=== PATIENT | male | born 1990 | race African-American/Black ===

== ENCOUNTER 2024-09-22 15:10 | Inpatient (IN) | payer OTHER, SELFPAY ==
[2024-09-22] VITALS (9 sets, daily range): BP systolic 141–163; BP diastolic 79–102; PULSE 104–123; RESP 17–20; TEMP 36.4–36.9; O2SAT 97–100; BMI 36.1
--- NOTE | ~2024-09-22 | XR_ITS ---
EXAMINATION: XR chest 1V portable DATE: 09/22/2024 17:12 INDICATION: Diabetic ketoacidosis. TECHNIQUE: A single frontal view of the chest was obtained. COMPARISON: None. FINDINGS: There is no pneumonia, pleural effusion, or pneumothorax. The heart size is normal. IMPRESSION: 1. No acute cardiopulmonary disease. Reviewed, dictated and finalized at location A. R EQUIPMENT SERGEANT
--- NOTE | ~2024-09-22 | CT_ITS ---
EXAMINATION: CT brain wo con DATE: 09/22/2024 15:57 INDICATION: Blurry vision. TECHNIQUE: Computed tomography (CT) of the head was performed without intravenous contrast. The mA wa s adjusted according to patient size. Iterative reconstruction technique was employed. The dose-lengt h product was 681.00 mGy-cm. COMPARISON: None FINDINGS: There is no intracranial hemorrhage, acute infarction, or abnormal intracranial mass lesion . The ventricles are normal in size. The orbits are normal. There is mild mucosal thickening in the p aranasal sinuses. The mastoid air cells are normal. IMPRESSION: 1. Normal brain. Reviewed, dictated and finalized at location A. MACHINE OPERATOR IMPRESSION: 1. Normal brain.
[2024-09-22 15:40] LABS: Glucose Point of Care 462 mg/dl (65-105)
[2024-09-22] MEDS: SODIUM CHLORIDE 0.9% IV 1,000 ML 999 ML IV CONT ×3 (16:02→16:45)
[2024-09-22 16:03] LABS: Basophils Absolute Auto 0.1 K/mm3 (0.0-0.1); Eosinophils Absolute Auto 0.2 K/mm3 (0-0.3); Eosinophils Percent Auto 1.5 % (0-4.4); Hematocrit 51.3 % (42.0-52.0); Immature Granulocyte Absolute 0.02 K/mm3 (0.00-0.031); Immature Granulocyte Percent A 0.2 % (0-0.5); Lymphocytes Absolute Auto 2.08 K/mm3 (0.9-3.2); Lymphocytes Percent Auto 19.8 % (18.3-44.2); Mean Corpuscular HGB Conc 33.1 g/dl (32-36); Mean Corpuscular Hemoglobin 27.8 pg (26-34); Mean Platelet Volume 12.8 fl (7.4-10.4); Monocytes Percent Auto 9.8 % (2.6-8.5); Neutrophils Absolute Auto 7.1 K/mm3 (1.3-6.7); Neutrophils Percent Auto 67.7 % (45.5-73.1); Platelet Count Result 261 k/mm3 (150-375); Red Blood Count 6.11 M/mm3 (4.6-6.20); Red Cell Distribution Width 12.4 % (11.5-14.5); White Blood Count 10.5 K/mm3 (4.5-10.0)
[2024-09-22 16:14] LABS: Alanine Aminotransferase 43 U/L (6-50); Alkaline Phosphatase 118 U/L (38-126); Anion Gap 23 mmol/L (4-12); Aspartate Amino Transferase 29 U/L (17-59); Bilirubin,Total 1.2 mg/dL (0.2-1.3); Blood Urea Nitrogen 24 mg/dL (9-20); Calcium 10.3 mg/dL (8.4-10.2); Carbon Dioxide 20 mmol/L (22-30); Chloride 90 mmol/L (98-107); Estimated CRCL calculation 108 ml/min; Estimated Glomerular Filt Rate > 60; Glucose 430 mg/dL (65-110); Magnesium 2.6 mg/dL (1.6-2.3); Phosphorus 5.1 mg/dL (2.5-4.5); Potassium 4.8 mmol/L (3.4-5.0); Sodium 133 mmol/L (137-145)
--- OUTSIDE RECORDS SUMMARY | 2024-09-22 16:16 | XMS_ITS | Clinical Summary ---
Author Organization [facility] Address [facility] [place] [address] Care Team Providers Care Certified Bench Jeweler Technician Name Role Phone None, Provider MD Primary Care Provider Unavaila ble Allergies No known active allergies Medications amLODIPine (NORVASC) 5 MG tablet Take 1 tablet (5 mg total) by mouth daily. 30 tablet 1 01/17/2023 Active naproxen (NAPROSYN) 500 MG tablet Take 1 tablet (500 mg total) by mouth 2 (two) times daily with meals. 30 tablet 03/01/2023 Active azithromycin (ZITHROMAX Z-ROBIN) 250 MG tablet Take 2 tabs on day one Take 1 tab on days 2-5 6 tablet 03/01/2023 Active Family History Medical History Relation Comments Hypertension Mother Relation Status Comments Mother Alive Social History Tobacco Use Types Packs/Day Years Used Date Smoking Tobacco: Every Day Cigars Smokeless Tobacco: Never Tobacco Cessation:Ready to Q uit: Not Asked; Counseling Given: Not Answered Alcohol Use Standard Drinks/Week Comments Yes 2 (1 standard drink = 0.6 oz pur e alcohol) Sex and Gender Information Value Date Recorded Sex Assigned at Not on file Legal Sex Male 2:08 PM CDT Gender Identity Not on file Sexual Orientation Not on file Last Filed Vital Signs Vital Sign Reading Time Taken Comments Blood Pressure 167/102 03/01/2023 3:40 PM CDT Pulse 95 03/01/2023 3:40 PM CDT Temperature 36.9 C (98.5 F) 03/01/2023 2:24 PM CDT Respiratory Rate 18 03/01/2023 3:40 PM CDT Oxygen Saturation 95% 03/01/2023 3:40 PM CDT Inhaled Oxygen Concentration - - Weight 117.9 kg (260 lb) 03/01/2023 2:24 PM CDT Height 177.8 cm (5' 10 ) 03/01/2023 2:24 PM CDT Body Mass Index 37.31 03/01/2023 2:24 PM CDT Plan of Treatment Health Maintenance Due Date Last Done Comments Annual Physical 1993 Pneumococcal Vaccine: Pediat rics (0 to 5 Years) and At-Risk Patients (6 to 64 Years) (1 of 2 - PCV) 1996 Hepatitis C 2008 DTaP, Tdap and Td Vaccines ( 1 - Tdap) 2009 Hepatitis B Vaccines (1 of 3 - 19+ 3-dose series) 2009 COVID-19 Vaccine (2023-2 5 season) 2024 Influenza Adult (#1) 2024 HPV Vaccines Aged Out No longer eligi ble based on patient's age to complete this topic Meningococcal B Vaccine Aged Out No l onger eligible based on patient's age to complete this topic Meningococcal Vaccine Aged Out No laci rodríguez eligible based on patient's age to complete this topic RSV Immunizations Under 20 Months Aged Out No longer eligible based on patient's age to complete this topic Insurance [facility] Care Teams Certified Bench Jeweler Technician Relationship Specialty Start Date End Date None, Provider, PCP - General 04/28/22
--- NOTE | 2024-09-22 16:18 | ED_ITS ---
HPI - Headache General Chief Complaint: Headache Stated Complaint: LUJAN,BLURRED VISION Time Seen by Provider: 09/22/24 15:37 History of Present Illness HPI Narrative: 33-year-old previously healthy male presenting to the emergency department for evaluation of progressive worsening blurry vision, frontal headache, polyuria and polydipsia. He has no history of diabetes, no strong family history of diabetes. Does not take any prescription medications. He states for last 3 days he has been at work having progressively worsening vision where he feels his mood far site is deteriorating but he sees clear close up. Does not wear contact lenses, does not have any corrective glasses. No vision changes before. States that he has been feeling very dehydrated despite good oral intake. Has been having polyuria with clear urine without any urinary tract infection symptoms. Denies any nausea, vomiting, difficulty breathing, abdominal pain, back pain. Blood sugar in triage was elevated 462 indicative of diabetes. Related Data Home Medications ?Medication ?Instructions ?Recorded ?Confirmed ?Last Taken ?Type No Home Medications 09/22/24 09/22/24 Unknown History Allergies Allergy/AdvReac Type Severity Reaction Status Date / Time No Known Allergies Allergy Verified 09/22/24 15:42 Review of Systems 2 Review of Systems: As reviewed above in HPI Exam 2 Narrative: GENERAL: [Well-appearing, well-nourished, and in no acute distress.] HEAD: [Normocephalic, atraumatic.] EYES: [PERRLA and EOMI.] ENT: Nares clear, no rhinorrhea or epistaxis. Mucous membranes dry. NECK: Supple. CHEST: [Clear to auscultation. No respiratory distress.] HEART: [Regular rate and rhythm]. No murmur heard. [Normal peripheral pulses.] ABDOMEN: [Soft, nondistended], [nontender], [No rigidity or guarding] EXTREMITIES: Normal range of motion. [No edema.] SKIN: Warm, dry, no rash. NEURO: [No focal deficits]. Alert and oriented [x3.] PSYCH: [Normal mood and affect.] Course Vital Signs Vital signs: Vital Signs Temperature 36.8 C 09/22/24 15:23 Pulse Rate 123 H 09/22/24 15:23 Respiratory Rate 18 09/22/24 15:23 Blood Pressure 159/92 H 09/22/24 15:23 Pulse Oximetry 97 09/22/24 15:23 Oxygen Delivery Room Air 09/22/24 15:23 Temperature 36.8 C 09/22/24 15:23 Pulse Rate 115 H 09/22/24 16:00 Respiratory Rate 20 09/22/24 16:00 Blood Pressure 152/93 H 09/22/24 16:00 Pulse Oximetry 99 09/22/24 16:00 Oxygen Delivery Room Air 09/22/24 15:37 MDM - Headache MDM Narrative Medical decision making narrative: 33-year-old previously healthy male presenting to the emergency department for evaluation of progressively worsening blurry vision, headache, polyuria and polydipsia. Patient appears very dehydrated on examination is tachycardic with a pulse 123. Slightly hypertensive with a blood pressure 152/93 but no tachypnea, fever or hypoxia. He has clear breath sounds, strong radial pulses, no abdominal pain. Patient was found to be hyperglycemic in triage with no reported history of diabetes. Suspicion presently is for hyperglycemia causing his symptomatology to with potential involvement of diabetic ketoacidosis versus HHS. Low suspicion for intracranial pathology but given his hyperglycemia he is high risk for stroke pathology. CT of the head was obtained as well as blood work including CBC, CMP, A1c, beta hydroxybutyrate in VBG. He was given a 2 L normal saline bolus and placed on pulse oximetry and alarm security or surveillance monitor. Workup revealed a white count of 10.5, normal platelets, normal hemoglobin. Blood gas shows normal pH is 7.36 however he does have anion gap of 24 with a bicarb of 19. Compensated with respiratory drive and concerning for metabolic acidosis secondary to DKA. Electrolytes show pseudo hyponatremia which corrects towards normal after accounting for his glucose of 430. A1c came back at 11.7. Anion gap of 24, bicarb of 19. BUN of 24 and creatinine 1.10. Likely prerenal azotemia from dehydration. Elevated beta hydroxybutyrate 4.06 indicative of ongoing ketosis from his diabetes. Urinalysis and viral panels pending. CT of the head was negative without any acute findings. Chest x-ray without any acute findings. Patient was given 3 L of normal saline, given potassium supplementing infusion of normal saline as maintenance rate of 200 cc/hour with pharmacy to assist. Started on IV insulin therapy at 0.1 units/kilogram per hour for treatment of diabetic ketoacidosis with his elevated anion gap, ketosis and elevated blood sugar. Spoke to the counter waitress/waiter Dr. Troncoso who accepted the patient to the intensive care unit after we went over patient's clinical exam, history and workup findings here. Spoke to the hospitalist team currently being covered by the midlevel provider Maria E who agreed to accept the patient to the hospital as well. Patient was made aware of the plan of care and was accepted to the ICU at this time. Medical Records Attestation: I reviewed the patient's medical records. Lab Data Attestation: I reviewed the patient's lab results. 09/22/24 15:58 09/22/24 15:58 Labs: Lab Results 09/22/24 09/22/24 09/22/24 Range/Units 15:31 15:58 17:23 WBC 10.5 H (4.5-10.0) K/mm3 RBC 6.11 (4.6-6.20) M/mm3 Hgb 17.0 (14.0-18.0) g/dL Hct 51.3 (42.0-52.0) % MCV 84.0 (80-100) fl MCH 27.8 (26-34) pg MCHC 33.1 (32-36) g/dl RDW 12.4 (11.5-14.5) % Plt Count 261 (150-375) k/mm3 MPV 12.8 H (7.4-10.4) fl Immature Gran % (Auto) 0.2 (0-0.5) % Neut % (Auto) 67.7 (45.5-73.1) % Lymph % (Auto) 19.8 (18.3-44.2) % [place] % (Auto) 9.8 H (2.6-8.5) % Eos % (Auto) 1.5 (0-4.4) % Baso % (Auto) 1.0 (0.2-1.2) % Lymph # (Auto) 2.08 (0.9-3.2) K/mm3 [place] # (Auto) 1.0 H (0.1-0.6) K/mm3 Eos # (Auto) 0.2 (0-0.3) K/mm3 Baso # (Auto) 0.1 (0.0-0.1) K/mm3 Abs Immat Gran (auto) 0.02 (0.00-0.031) K/mm3 Absolute Neuts (auto) 7.1 H (1.3-6.7) K/mm3 Absolute Nucleated RBC 0.000 (0.0-0.012) K/mm3 Nucleated RBC % 0.0 (0.0-0.2) % Sodium 133 L (137-145) mmol/L Potassium 4.8 (3.4-5.0) mmol/L Chloride 90 L (98-107) mmol/L Carbon Dioxide 20 L (22-30) mmol/L Anion Gap 23 H (4-12) mmol/L BUN 24 H (9-20) mg/dL Creatinine 1.10 (0.7-1.3) mg/dL Estim Creat Clear Calc 108 ml/min Estimated GFR > 60 (59 - ) Glucose 430 H (65-110) mg/dL POC Capillary Glucose 462 H (65-105) mg/dl Hemoglobin A1c 11.7 H (<5.7) % Calcium 10.3 H (8.4-10.2) mg/dL Phosphorus 5.1 H (2.5-4.5) mg/dL Magnesium 2.6 H (1.6-2.3) mg/dL Total Bilirubin 1.2 (0.2-1.3) mg/dL AST 29 (17-59) U/L ALT 43 (6-50) U/L Alkaline Phosphatase 118 (38-126) U/L Total Protein 10.0 H (6.3-8.2) g/dL Albumin 5.0 (3.5-5.1) g/dL Beta-Hydroxybutyrate/Acetoacetate 4.06 H (0.02-0.27) mmol/L Urine Color Pending Urine Appearance Pending Urine pH Pending Ur Specific [employer] Pending Urine Protein Pending Urine Glucose (UA) Pending Urine Ketones Pending Ur Blood (Man) Pending Urine Nitrate Pending Urine Bilirubin Pending Urine Urobilinogen Pending Leukocyte Esterase Rfl Pending Influenza A (RT-PCR) Pending Influenza B (RT-PCR) Pending RSV (RT-PCR) Pending SARS-CoV-2 RNA (RT-PCR) Pending ABG Data ABG results: 09/22/24 16:35 VBG pH 7.359 VBG pCO2 35.7 L VBG pO2 33.6 L VBG HCO3 19.7 L O2 Delivery Device Not Reportable O2 Liters/Min Not Reportable FiO2 21 Attestation: I personally reviewed and interpreted this ABG as follows: Interpretation: Normal pH with a compensated metabolic acidosis with respiratory alkalosis. Imaging Data Attestation: I personally reviewed and interpreted this imaging study as follows: My impression: Impressions Head CT 09/22/24 16:03 IMPRESSION: 1. Normal brain. Chest X-Ray 09/22/24 17:17 IMPRESSION: 1. No acute cardiopulmonary disease. Critical Care Time Critical Care Time Critical Care Time: Yes Total Critical Care Time: 77 Discharge Plan Discharge Clinical Impression: DKA (diabetic ketoacidosis), Diabetes mellitus, new onset, Blurred vision, Acute dehydration, Polyuria Patient Disposition: Still a Patient Condition: Guarded Prognosis Patient Language: Welsh Prescriptions: No Action No Home Medications Follow-up/Referrals: PHYSICIAN,RN TELE [Primary Care Provider] - Time of Disposition: 17:39
[2024-09-22 16:20] LABS: Beta-Hydroxybutyrate/Acetoacetate 4.06 mmol/L (0.02-0.27)
[2024-09-22 16:42] LABS: Fractional Inspired Oxygen 21 %; HCO3 VBG 19.7 mEq/l (24.0-30.0); PCO2 VBG 35.7 mmHg (42.0-48.0); PO2 VBG 33.6 mmHg (35.0-45.0); pH VBG 7.359 (7.300-7.400)
[2024-09-22 16:43] LABS: Hemoglobin A1C 11.7 % (<5.7)
[2024-09-22] MEDS: SODIUM CHLORIDE 0.9% IV CONT (17:50)
[2024-09-22] MEDS: POTASSIUM CHLORIDE IV CONT (17:50)
[2024-09-22] MEDS: INSULIN HUMAN REGULAR (*BKC) 100 UNITS in SODIUM CHLORIDE 0.9% IV 99 ML 11.5 UNITS IV CONT (17:54)
[2024-09-22 18:00] LABS: Add Urine Microscopic? YES; Appearance Urine Clear (Clear); Bacteria Urine None Seen /hpf; Bilirubin Urine Negative (Negative); Blood Urine Negative (Negative); Color Urine Yellow (Yellow); Glucose Urine UA 3+ mg/dL (Negative); Ketones Urine 3+ mg/dL (Negative); Leukocyte Esterase Ur Negative LEU/UL (Negative); Need Manual Microscopic Reviewed; Nitrate Urine Negative (Negative); Protein Urine 1+ mg/dL (Negative); RBC Urine 0-2 /hpf (0-2); Specific Grav Ur 1.027 (1.001-1.035); Squamous Epithelial Cell Urine Occasional /hpf (Few); Urobilinogen Urine 0.2 mg/dL (<2.0); WBC Urine 0-5 /hpf (0-3); pH Urine 5.5 (5.0-9.0)
--- NOTE | 2024-09-22 18:00 | P.HP_ITS ---
H&P: HPI History of Present Illness Date/Time: 09/22/24 18:00 Chief Complaint: Headache and blurry vision. Narrative: This is a very pleasant 33-year-old male with no reported medical history who presented to the emergency department via private vehicle with complaints of headache and blurry vision. The patient provides the following history. He has not been feeling well for about 3 days with symptoms to include a frontal headache, blurry vision, polydipsia, polyuria, and decreased energy. He feels dehydrated despite good oral intake. He denies syncope, near syncope, fever, cold and flu symptoms, chest pain, palpitations, cough, shortness of breath, abdominal pain, nausea, vomiting, diarrhea, dysuria, paresthesias, and nonhealing wounds. His weight has remained stable. No known personal or family history of diabetes. In the ED: Vitals on arrival include a temperature of 98.2? F, blood pressure 159/92, pulse 123, respiratory rate 18, SpO2 97% on room air. Labs were significant for WBC count of 10.5, sodium 133, chloride 90, carbon dioxide 20, anion gap 23, BUN 24, creatinine 1.10, glucose 430, calcium 10.3, beta hydroxybutyrate 0.06. VBG showed a pH of 7.359, pCO2 35.7, HC03 19.7. He received 3 L sodium chloride and has been started on insulin drip and is being admitted in this setting for further treatment of diabetic ketoacidosis and new onset diabetes. Review of Systems Review of Systems: 12 systems were reviewed and are negativ e except for as per HPI. [facility] Past Medical History Medical History (Updated 09/22/24 @ 21:21 by Maria E Rand PA-C) No significant medical problems Surgical History Surgical History (Updated 09/22/24 @ 21:21 by Maria E Rand PA-C) No significant past surgical history Social History Social History (Updated 09/22/24 @ 21:21 by Maria E Rand PA-C) Social History: Surrogate medical decision maker: Griselda Og significant other. Code status: Full code. Smoking status: Current every day smoker Tobacco type: cigars Alcohol intake: current Substance use: never Substance use type: does not use Do You Feel Safe in your Home?: Yes Lack of Transportation: No Lack of Food: Never True Current Housing: I Have Housing Concerned About Future Housing: No Difficulty Paying Gas/Electric Bills: No Difficulty Paying for Meds: No Currently Unemployed: No Education: Grade School Difficulty w/ Childcare or Family Care: No Spiritual care concerns: No Meds Home Medications and Allergies Home Medications ?Medication ?Instructions ?Recorded ?Confirmed ?Type No Home Medications 09/22/24 09/22/24 History Allergies Allergy/AdvReac Type Severity Reaction Status Date / Time No Known Allergies Allergy Verified 09/22/24 15:42 Vital Signs Vital Signs - 24 hr 09/22/24 15:23 09/22/24 15:37 09/22/24 16:00 Temperature 98.2 F Pulse Rate 123 H 122 H 115 H Respiratory Rate 18 17 20 Blood Pressure 159/92 H 152/102 H 152/93 H Pulse Oximetry 97 99 99 Oxygen Delivery Room Air Room Air 09/22/24 17:58 Temperature Pulse Rate 108 H Respiratory Rate 17 Blood Pressure 158/98 H Pulse Oximetry 100 Oxygen Delivery Exam Narrative: General: Moderately ill-appearing male in the semi-Rodriguez position in bed. Weight: 110.8 kg. BMI: 36.1. HEENT: PERRL, EOMI. Sclera anicteric. Conjunctiva mildly injected. Tacky mucous membranes. Neck: Supple. Respiratory: Lungs are clear to auscultation bilaterally. Cardiovascular: Tachycardic with normal S1-S2. Gastrointestinal: Abdomen is soft, nontender, and nondistended with positive bowel sounds. Skin: Warm and dry. Extremities: No cyanosis, clubbing, or edema. Radial and pedal pulses intact. Neurological: Alert. Cranial nerves 2-12 are grossly intact. No gross focal deficits to casual conversation. Psychiatric: Pleasant and cooperative with normal mood and affect. Judgment and insight intact. H&P: Results Labs Labs: Short CBC 09/22/24 Range/Units 15:58 WBC 10.5 H (4.5-10.0) K/mm3 Hgb 17.0 (14.0-18.0) g/dL Hct 51.3 (42.0-52.0) % Plt Count 261 (150-375) k/mm3 [facility] 09/22/24 15:58 Sodium 133 L Potassium 4.8 Chloride 90 L Carbon Dioxide 20 L BUN 24 H Creatinine 1.10 Glucose 430 H Calcium 10.3 H Liver Function 09/22/24 Range/Units 15:58 Total Bilirubin 1.2 (0.2-1.3) mg/dL AST 29 (17-59) U/L ALT 43 (6-50) U/L Alkaline Phosphatase 118 (38-126) U/L Albumin 5.0 (3.5-5.1) g/dL ABG ABG results: 09/22/24 16:35 VBG pH 7.359 VBG pCO2 35.7 L VBG pO2 33.6 L VBG HCO3 19.7 L O2 Delivery Device Not Reportable O2 Liters/Min Not Reportable FiO2 21 Assessment and Plan Assessment and plan (1) Diabetic ketoacidosis: Code(s): E11.10 - Type 2 diabetes mellitus with ketoacidosis without coma Status: Acute Assessment and Plan: Patient presents with polyuria, polydipsia, and blurry vision for several days and was found to have a random glucose of 430 with an increased anion gap and an elevated beta hydroxybutyrate with ketonuria. * Received 3 L normal saline in the emergency department. * Currently on insulin drip which will be titrated per DKA protocol. * Continue a hourly Accu-Cheks and q.4 BMPs to monitor for anion gap closure. * Transition to long-acting insulin upon resolution of DKA. (2) New onset type 2 diabetes mellitus: Code(s): E11.9 - Type 2 diabetes mellitus without complications Status: Acute Assessment and Plan: Patient presents with a random glucose of 430 and a hemoglobin A1c of 11.7% consistent with new onset diabetes. * Initiate basal insulin upon resolution of DKA. * Consult dietitian and diabetic educators. * He will need to have a PCP set up prior to discharge for close follow-up. (3) Elevated blood pressure reading: Code(s): R03.0 - Elevated blood-pressure reading, without diagnosis of hypertension Status: Acute Assessment and Plan: Blood pressure on arrival was 159/92 and has been consistently in the 150 systolic. Occupational Health that his work has reported that his blood pressu res have been elevated before. * Continue to monitor blood pressures closely. * Initiate antihypertensives depending on how he trends. Quality VTE Prophylaxis VTE prophylaxis: pharmacologic ordered Hospitalist MIPS Advance Care Plan I have confirmed that the patient's Advanced Care Plan is present, code status is documented, or surrogate decision maker is listed in patient medical record.: Yes Medication Reconciliation I have utilized all available resources to obtain, update and review the patients current medications (includes all prescriptions, OTC, herbals, cannabis, and nutritional supplements).: Yes
[2024-09-22 18:06] LABS: Influenza A QL RT-PCR Negative (Negative); Influenza B QL RT-PCR Negative (Negative); RSV RNA, RT-PCR Negative (Negative); SARS-CoV-2 RNA PCR Negative (Negative)
[2024-09-22] MEDS: SODIUM CHLORIDE 0.9% IV 1,000 ML 150 ML IV CONT (18:48)
--- NOTE | 2024-09-22 18:51 | PC.NURSE ---
This patient, Elizabeth Cunningham, was admitted to Intensive Care Unit-5 at 1823. Patient/family oriented to hospital policies and general routines including ID bracelet, bed and alarms, visiting hours, pain management, procedures, bathroom and other care routines, personal items, smoking policy, room service/diet, and visiting hours. Information on how to activate the Rapid Response Team has been discussed. Patient/Family are encouraged to report perceived risks to care and to ask questions if they do not understand what they are told or what they should do.
[2024-09-22 19:10] LABS: Glucose Point of Care 297 mg/dl (65-105)
--- NOTE | 2024-09-22 19:27 | PC.NURSE ---
Left message with diabetic educator regarding patient and new diagnosis of DM
[2024-09-22 20:04] LABS: Glucose Point of Care 238 mg/dl (65-105)
[2024-09-22] MEDS: KCL 20 MEQ/D5/0.45% SOD CHL 1,000 ML 150 ML IV CONT (20:11)
[2024-09-22 20:32] LABS: MRSA (PCR) NOT DETECTED (NOT DETECTE)
[2024-09-22 21:07] LABS: Glucose Point of Care 230 mg/dl (65-105)
[2024-09-22 22:19] LABS: Anion Gap 12 mmol/L (4-12); Blood Urea Nitrogen 15 mg/dL (9-20); Calcium 8.6 mg/dL (8.4-10.2); Carbon Dioxide 21 mmol/L (22-30); Chloride 103 mmol/L (98-107); Estimated CRCL calculation 151 ml/min; Estimated Glomerular Filt Rate > 60; Glucose 201 mg/dL (65-110); Potassium 3.8 mmol/L (3.4-5.0); Sodium 136 mmol/L (137-145)
[2024-09-22 23:09] LABS: Glucose Point of Care 163 mg/dl (65-105)
[2024-09-23] VITALS (16 sets, daily range): BP systolic 130–154; BP diastolic 70–93; PULSE 16–109; RESP 14–20; TEMP 36.7–37; O2SAT 93–100
[2024-09-23 00:01] LABS: Glucose Point of Care 167 mg/dl (65-105)
[2024-09-23 01:03] LABS: Glucose Point of Care 188 mg/dl (65-105)
[2024-09-23 01:30] LABS: Anion Gap 13 mmol/L (4-12); Blood Urea Nitrogen 14 mg/dL (9-20); Calcium 8.7 mg/dL (8.4-10.2); Carbon Dioxide 20 mmol/L (22-30); Chloride 102 mmol/L (98-107); Estimated CRCL calculation 153 ml/min; Estimated Glomerular Filt Rate > 60; Glucose 181 mg/dL (65-110); Potassium 4.1 mmol/L (3.4-5.0); Sodium 135 mmol/L (137-145)
[2024-09-23 01:59] LABS: Glucose Point of Care 228 mg/dl (65-105)
[2024-09-23 03:00] LABS: Glucose Point of Care 272 mg/dl (65-105)
[2024-09-23 04:09] LABS: Glucose Point of Care 262 mg/dl (65-105)
[2024-09-23] MEDS: KCL 20 MEQ/D5/0.45% SOD CHL 1,000 ML 150 ML IV CONT (04:12)
[2024-09-23 05:00] LABS: Glucose Point of Care 290 mg/dl (65-105)
[2024-09-23 05:54] LABS: Basophils Absolute Auto 0.1 K/mm3 (0.0-0.1); Basophils Percent Auto 1.1 % (0.2-1.2); Eosinophils Absolute Auto 0.3 K/mm3 (0-0.3); Hematocrit 44.3 % (42.0-52.0); Hemoglobin 14.2 g/dL (14.0-18.0); Immature Granulocyte Absolute 0.02 K/mm3 (0.00-0.031); Immature Granulocyte Percent A 0.3 % (0-0.5); Lymphocytes Absolute Auto 1.75 K/mm3 (0.9-3.2); Lymphocytes Percent Auto 24.3 % (18.3-44.2); Mean Corpuscular HGB Conc 32.1 g/dl (32-36); Mean Corpuscular Volume 87.4 fl (80-100); Mean Platelet Volume 12.7 fl (7.4-10.4); Monocytes Absolute Auto 0.7 K/mm3 (0.1-0.6); Monocytes Percent Auto 10.1 % (2.6-8.5); Neutrophils Absolute Auto 4.3 K/mm3 (1.3-6.7); Neutrophils Percent Auto 60.2 % (45.5-73.1); Platelet Count Result 201 k/mm3 (150-375); Red Blood Count 5.07 M/mm3 (4.6-6.20); Red Cell Distribution Width 12.7 % (11.5-14.5); White Blood Count 7.2 K/mm3 (4.5-10.0)
[2024-09-23 06:03] LABS: Glucose Point of Care 291 mg/dl (65-105)
[2024-09-23 06:11] LABS: Anion Gap 13 mmol/L (4-12); Blood Urea Nitrogen 11 mg/dL (9-20); Calcium 8.8 mg/dL (8.4-10.2); Carbon Dioxide 19 mmol/L (22-30); Chloride 102 mmol/L (98-107); Estimated CRCL calculation 161 ml/min; Estimated Glomerular Filt Rate > 60; Glucose 278 mg/dL (65-110); Magnesium 2.3 mg/dL (1.6-2.3); Potassium 4.4 mmol/L (3.4-5.0); Sodium 134 mmol/L (137-145)
[2024-09-23 07:05] LABS: Glucose Point of Care 297 mg/dl (65-105)
[2024-09-23 08:05] LABS: Glucose Point of Care 251 mg/dl (65-105)
--- OUTSIDE RECORDS SUMMARY | 2024-09-23 08:22 | XMS_ITS | Clinical Summary ---
Author Organization [facility] Address [facility] [place] [address] Care Team Providers Care Helicopter Technician Name Role Phone None, Provider MD [...] patient's age to complete this topic Insurance [facility] Care Teams Helicopter Technician Relationship Specialty Start Date End Date None, Provider, PCP - General 04/28/22
[2024-09-23] MEDS: INSULIN HUMAN REGULAR (*BKC) 100 UNITS in SODIUM CHLORIDE 0.9% IV 99 ML 6 UNITS IV CONT (09:03)
[2024-09-23 09:04] LABS: Glucose Point of Care 225 mg/dl (65-105)
[2024-09-23 09:07] LABS: Anion Gap 9 mmol/L (4-12); Blood Urea Nitrogen 9 mg/dL (9-20); Calcium 8.9 mg/dL (8.4-10.2); Carbon Dioxide 23 mmol/L (22-30); Chloride 103 mmol/L (98-107); Estimated CRCL calculation 167 ml/min; Estimated Glomerular Filt Rate > 60; Glucose 207 mg/dL (65-110); Sodium 135 mmol/L (137-145)
--- NOTE | 2024-09-23 09:23 | WPDCNINT ---
Assessment and Plan Assessment and plan (1) DKA (diabetic ketoacidosis): Code(s): E11.10 - Type 2 diabetes mellitus with ketoacidosis without coma <Ham Troncoso MD - Last Filed: 09/23/24 09:29> Status: Acute <Ham Torncoso MD - Last Filed: 09/23/24 09:29> Assessment and Plan: DKA in a patient with new onset diabetes. Pt was given IVF bolus and started on IVF infusion Insulin infusion was started and Q1H glucose monitoring is being done Serial labs ordered Most recent labs reviewed and his anion gap is closed. Although patient is still is requiring significant amount of insulin on the infusion. He is also clinically improved and is mostly asymptomatic at this time I will discontinue IV fluid dextrose and switch him to normal saline with potassium but continue insulin infusion Start diabetic diet Once his insulin requirement insert and off dextrose infusion I will transition to subcutaneous insulin asthma educator and dietitian has been consulted. <Ham Troncoso MD - Last Filed: 09/23/24 09:29> Assessment and Plan: DVT prophylaxis -SCD, anticipate patient will be ambulating today Nutrition -diet ordered Code Status - Full Code <Ham Troncoso MD - Last Filed: 09/23/24 09:29> Digital Asset Manager Consult Note Consult date: 09/23/24 <Ham Troncoso MD - Last Filed: 09/23/24 09:29> 09/23/24 <Maria E Rand PA-C - Last Filed: 09/23/24 13:01> Reason for consult: DKA <Ham Troncoso MD - Last Filed: 09/23/24 09:29> HPI: Elizabeth Cunningham is a 33 year old male with no significant past medical history presented to ER yesterday with chief complaint of blurred vision polyuria polydipsia feeling of weakness nausea from last 3 days. Patient denies any chest pain shortness a breath fever dysuria hematuria hematochezia melena. He states that from last 3 days he has been having blurred vision going to bathroom very frequently and feeling excessive thirst. He also had some abdominal pain which was mild diffuse P all other systems were reviewed and were negative Workup in the ER showed elevated blood glucose level. Afebrile elevated blood pressure tachycardia. His anion gap was elevated and beta hydroxybutyrate was positive. Patient was diagnosed with DKA with new onset diabetes. He was given IV fluid bolus and started on IV fluids and also started on insulin infusion admitted to ICU for further evaluation management. This morning when I evaluated the patient he states he feels markedly better his blurred vision is significantly improved although it is still not normal. He denies any of this complaints and states the nausea weakness has resolved and he feels he can eat and drink today. All other systems were reviewed and were negative <Ham Troncoso MD - Last Filed: 09/23/24 09:29> Review of Systems Review of Systems: All systems reviewed & are unremarkable except as noted in HPI and below (HPI) <Ham Troncoso MD - Last Filed: 09/23/24 09:29> PMFSH Past Medical History Medical History: Medical History No significant medical problems <Ham Troncoso MD - Last Filed: 09/23/24 09:29> Surgical History Surgical History: Surgical History No significant past surgical history <Ham Troncoso MD - Last Filed: 09/23/24 09:29> Social History Social History: Social History Social History: Surrogate medical decision maker: Griselda Og, significant other. Code status: Full code. Smoking status: Current every day smoker Tobacco type: cigars Alcohol intake: current Substance use: never Substance use type: does not use Do You Feel Safe in your Home?: Yes Lack of Transportation: No Lack of Food: Never True Current Housing: I Have Housing Concerned About Future Housing: No Difficulty Paying Gas/Electric Bills: No Difficulty Paying for Meds: No Currently Unemployed: No Education: Grade School Difficulty w/ Childcare or Family Care: No Spiritual care concerns: No <Ham Troncoso MD - Last Filed: 09/23/24 09:29> Meds Home Medications and Allergies Home medications: Home Medications ?Medication ?Instructions ?Recorded ?Confirmed ?Type No Home Medications 09/22/24 09/22/24 History <Ham Troncoso MD - Last Filed: 09/23/24 09:29> Allergies/Adverse reactions: Allergies Allergy/AdvReac Type Severity Reaction Status Date / Time No Known Allergies Allergy Verified 09/22/24 15:42 <Ham Troncoso MD - Last Filed: 09/23/24 09:29> Vital Signs Vital Signs - 24 hr 09/22/24 15:23 09/22/24 15:37 09/22/24 16:00 Temperature 36.8 C Pulse Rate 123 H 122 H 115 H Respiratory Rate 18 17 20 Blood Pressure 159/92 H 152/102 H 152/93 H Pulse Oximetry 97 99 99 Oxygen Delivery Room Air Room Air Fraction of Inspired Oxygen 09/22/24 17:58 09/22/24 18:26 09/22/24 19:10 Temperature 36.4 C L Pulse Rate 108 H 105 H 111 H Respiratory Rate 17 17 17 Blood Pressure 158/98 H 152/79 H 147/86 H Pulse Oximetry 100 100 99 Oxygen Delivery Fraction of Inspired Oxygen 09/22/24 20:00 09/22/24 20:00 09/22/24 20:00 Temperature 36.5 C Pulse Rate 109 H 105 H Respiratory Rate 20 19 Blood Pressure 141/89 H Pulse Oximetry 99 98 Oxygen Delivery Room Air Fraction of Inspired Oxygen 09/22/24 20:43 09/22/24 22:00 09/22/24 22:00 Temperature 36.9 C Pulse Rate 104 H 104 H Respiratory Rate 20 Blood Pressure 163/80 H Pulse Oximetry 97 97 Oxygen Delivery Room Air Fraction of Inspired Oxygen 21 09/23/24 00:00 09/23/24 00:00 09/23/24 00:15 Temperature 37.0 C Pulse Rate 102 H 105 H Respiratory Rate 18 16 Blood Pressure 138/78 Pulse Oximetry 97 94 Oxygen Delivery Room Air Fraction of Inspired Oxygen 09/23/24 02:00 09/23/24 02:05 09/23/24 04:00 Temperature Pulse Rate 94 93 Respiratory Rate 20 18 Blood Pressure 154/78 H Pulse Oximetry 96 93 Oxygen Delivery Room Air Fraction of Inspired Oxygen 09/23/24 04:00 09/23/24 04:23 09/23/24 06:00 Temperature 36.9 C Pulse Rate 91 91 99 Respiratory Rate 18 Blood Pressure 130/70 Pulse Oximetry 96 Oxygen Delivery Fraction of Inspired Oxygen 09/23/24 06:03 09/23/24 08:00 09/23/24 08:00 Temperature 37.0 C 36.8 C Pulse Rate 90 86 107 H Respiratory Rate 18 14 Blood Pressure 153/80 H 133/86 Pulse Oximetry 97 97 Oxygen Delivery Fraction of Inspired Oxygen <Ham Troncoso MD - Last Filed: 09/23/24 09:29> Exam Narrative: General: Pt is alert awake and in NAD Lungs/Chest: Trachea central Clear BS B/L, No crackles or wheezing. Cardiac: RRR. Normal S1 S2. No murmurs Circulation: Pedal pulses are intact and symmetrical. Abdomen: Normal bowel sounds. Obese. Soft. NT. ND. Extremities: No clubbing, cyanosis or edema. Warm : Mace in place Neurologic: Follows commands. Moves all 4 extremities PERRL Skin: No Rash <Ham Troncoso MD - Last Filed: 09/23/24 09:29> Results Labs CBC & Chem 7: 09/23/24 05:43 09/23/24 08:52 <Ham Troncoso MD - Last Filed: 09/23/24 09:29> Labs: Impressions Head CT 09/22/24 16:03 IMPRESSION: 1. Normal brain. Chest X-Ray 09/22/24 17:17 IMPRESSION: 1. No acute cardiopulmonary disease. Short CBC 09/22/24 09/23/24 Range/Units 15:58 05:43 WBC 10.5 H 7.2 (4.5-10.0) K/mm3 Hgb 17.0 14.2 (14.0-18.0) g/dL Hct 51.3 44.3 (42.0-52.0) % Plt Count 261 201 (150-375) k/mm3 [facility] 09/22/24 09/22/24 09/22/24 15:58 20:23 21:57 Sodium 133 L Cancelled 136 L Potassium 4.8 Cancelled 3.8 Chloride 90 L Cancelled 103 Carbon Dioxide 20 L Cancelled 21 L BUN 24 H Cancelled 15 D Creatinine 1.10 Cancelled 0.74 Glucose 430 H Cancelled 201 H Calcium 10.3 H Cancelled 8.6 09/23/24 09/23/24 09/23/24 01:08 05:43 08:52 Sodium 135 L 134 L 135 L Potassium 4.1 4.4 4.0 Chloride 102 102 103 Carbon Dioxide 20 L 19 L 23 BUN 14 11 9 Creatinine 0.73 0.69 L 0.66 L Glucose 181 H 278 H 207 H Calcium 8.7 8.8 8.9 Liver Function 09/22/24 Range/Units 15:58 Total Bilirubin 1.2 (0.2-1.3) mg/dL AST 29 (17-59) U/L ALT 43 (6-50) U/L Alkaline Phosphatase 118 (38-126) U/L Albumin 5.0 (3.5-5.1) g/dL Urine 09/22/24 Range/Units 17:23 Urine Color Yellow (Yellow) Urine Appearance Clear (Clear) Urine pH 5.5 (5.0-9.0) Ur Specific [place] 1.027 (1.001-1.035) Urine Protein 1+ H (Negative) mg/dL Urine Glucose (UA) 3+ H (Negative) mg/dL <Ham Troncoso MD - Last Filed: 09/23/24 09:29> Quality VTE Prophylaxis VTE prophylaxis: mechanical ordered <Ham Troncoso MD - Last Filed: 09/23/24 09:29> Hospitalist MIPS Advance Care Plan I have confirmed that the patient's Advanced Care Plan is present, code status is documented, or surrogate decision maker is listed in patient medical record.: Yes <Ham Troncoso MD - Last Filed: 09/23/24 09:29> Medication Reconciliation I have utilized all available resources to obtain, update and review the patients current medications (includes all prescriptions, OTC, herbals, cannabis, and nutritional supplements).: Yes <Ham Troncoso MD - Last Filed: 09/23/24 09:29>
[2024-09-23] MEDS: KCL 20MEQ/0.9% SOD CHL 1,000 ML 100 ML IV CONT ×2 (09:34→19:09)
[2024-09-23 10:14] LABS: Glucose Point of Care 322 mg/dl (65-105)
[2024-09-23 11:16] LABS: Glucose Point of Care 260 mg/dl (65-105)
[2024-09-23 12:11] LABS: Glucose Point of Care 234 mg/dl (65-105)
[2024-09-23 13:06] LABS: Glucose Point of Care 297 mg/dl (65-105)
[2024-09-23 13:29] LABS: Anion Gap 10 mmol/L (4-12); Blood Urea Nitrogen 9 mg/dL (9-20); Calcium 8.7 mg/dL (8.4-10.2); Carbon Dioxide 19 mmol/L (22-30); Chloride 104 mmol/L (98-107); Estimated CRCL calculation 134 ml/min; Estimated Glomerular Filt Rate > 60; Glucose 275 mg/dL (65-110); Potassium 4.6 mmol/L (3.4-5.0); Sodium 133 mmol/L (137-145)
[2024-09-23 14:03] LABS: Glucose Point of Care 273 mg/dl (65-105)
[2024-09-23 15:09] LABS: Glucose Point of Care 255 mg/dl (65-105)
[2024-09-23 16:18] LABS: Glucose Point of Care 192 mg/dl (65-105)
[2024-09-23 17:24] LABS: Glucose Point of Care 237 mg/dl (65-105)
[2024-09-23 18:12] LABS: Glucose Point of Care 252 mg/dl (65-105)
[2024-09-23 19:01] LABS: Glucose Point of Care 249 mg/dl (65-105)
[2024-09-23] MEDS: INSULIN HUMAN REGULAR (*BKC) 100 UNITS in SODIUM CHLORIDE 0.9% IV 99 ML 7.5 UNITS IV CONT (19:10)
[2024-09-23 20:12] LABS: Glucose Point of Care 244 mg/dl (65-105)
[2024-09-23] MEDS: INSULIN GLARGINE (*BKC) 100 UNITS/ML 60 UNITS SUB-Q (20:52)
[2024-09-23 21:10] LABS: Glucose Point of Care 197 mg/dl (65-105)
[2024-09-23 22:07] LABS: Glucose Point of Care 201 mg/dl (65-105)
[2024-09-23 23:08] LABS: Glucose Point of Care 198 mg/dl (65-105)
[2024-09-24] VITALS (13 sets, daily range): BP systolic 120–152; BP diastolic 74–98; PULSE 81–110; RESP 14–20; TEMP 36.6–36.9; O2SAT 96–100; BMI 36.0
[2024-09-24 00:15] LABS: Glucose Point of Care 198 mg/dl (65-105)
[2024-09-24 01:14] LABS: Glucose Point of Care 198 mg/dl (65-105)
[2024-09-24 02:17] LABS: Glucose Point of Care 190 mg/dl (65-105)
[2024-09-24 03:15] LABS: Glucose Point of Care 176 mg/dl (65-105)
[2024-09-24 04:36] LABS: Glucose Point of Care 191 mg/dl (65-105)
[2024-09-24 05:14] LABS: Hematocrit 42.4 % (42.0-52.0); Hemoglobin 13.7 g/dL (14.0-18.0); Mean Corpuscular HGB Conc 32.3 g/dl (32-36); Mean Corpuscular Hemoglobin 28.2 pg (26-34); Mean Corpuscular Volume 87.4 fl (80-100); Mean Platelet Volume 12.9 fl (7.4-10.4); Platelet Count Result 197 k/mm3 (150-375); Red Blood Count 4.85 M/mm3 (4.6-6.20); Red Cell Distribution Width 12.6 % (11.5-14.5); White Blood Count 6.3 K/mm3 (4.5-10.0)
[2024-09-24] MEDS: KCL 20MEQ/0.9% SOD CHL 1,000 ML 100 ML IV CONT (05:16)
[2024-09-24 05:21] LABS: Glucose Point of Care 196 mg/dl (65-105)
[2024-09-24 05:32] LABS: Alanine Aminotransferase 29 U/L (6-50); Albumin Level 3.6 g/dL (3.5-5.1); Alkaline Phosphatase 65 U/L (38-126); Anion Gap 7 mmol/L (4-12); Aspartate Amino Transferase 26 U/L (17-59); Bilirubin,Total 0.9 mg/dL (0.2-1.3); Blood Urea Nitrogen 6 mg/dL (9-20); Calcium 8.9 mg/dL (8.4-10.2); Carbon Dioxide 23 mmol/L (22-30); Chloride 106 mmol/L (98-107); Estimated CRCL calculation 163 ml/min; Estimated Glomerular Filt Rate > 60; Glucose 173 mg/dL (65-110); Magnesium 1.8 mg/dL (1.6-2.3); Potassium 3.9 mmol/L (3.4-5.0); Sodium 136 mmol/L (137-145)
[2024-09-24 06:27] LABS: Glucose Point of Care 164 mg/dl (65-105)
[2024-09-24 07:12] LABS: Glucose Point of Care 194 mg/dl (65-105)
[2024-09-24 08:05] LABS: Glucose Point of Care 161 mg/dl (65-105)
[2024-09-24] MEDS: INSULIN GLARGINE (*BKC) 100 UNITS/ML 50 UNITS SUB-Q (08:26)
[2024-09-24 09:07] LABS: Glucose Point of Care 186 mg/dl (65-105)
--- NOTE | 2024-09-24 09:57 | P.PNINT_ITS ---
Progress Note: A&P Assessment and Plan (1) DKA (diabetic ketoacidosis): Code(s): E11.10 - Type 2 diabetes mellitus with ketoacidosis without coma Status: Acute Assessment and Plan: DKA in a patient with new onset diabetes. Pt was given IVF bolus and started on IVF infusion Insulin infusion was started and Q1H glucose monitoring is being done Serial labs ordered Most recent labs reviewed and his anion gap is closed. Although patient is still is requiring significant amount of insulin on the infusion. He is also clinically improved and is mostly asymptomatic at this time Start diabetic diet 09/24: Anion gap remains closed for the last 24 hours, CO2 has normalized, blood sugars are much improved, on insulin infusion at 1 unit/hour. Will transition to long-acting insulin Lantus and sliding scale insulin. chemical educator and dietitian has been consulted. Plan DVT prophylaxis -SCD, up to chair and ambulate Stress ulcer prophylaxis: Not indicated Nutrition -diabetic diet Code Status - Full Code Critical care time spent: 35 minutes discussed with patient and updated with his condition and plan of care. I answered all his questions Due to a high probability of clinically significant, life threatening deterioration, the patient required my highest level of preparedness to intervene emergently and I personally spent this critical care time directly and personally managing the patient. This critical care time included obtaining a history; examining the patient; pulse oximetry; ordering and review of studies; arranging urgent treatment with development of a management plan; evaluation of patient's response to treatment; frequent reassessment; and discussions with other providers. It was exclusive of separately billable procedures and treating other patients and teaching time. Please see Assessment and Plan section and the rest of the note for further information on patient assessment and treatment This dictation may have been done utilizing a voice recognition system. Attempts have been made to correct errors. However, there may be uncorrected grammatical, spelling, and recognitions errors present. Subjective Date/time seen: 09/24/24 09:57 Interval history: Reason for consult: Diabetic ketoacidosis 09/24/2024: Patient seen and examined the ICU, is awake, alert, pleasant gentleman. Anion gap is closed, CO2 is 23, patient remains on insulin infusion 1 unit/hour. Patient is on a diet. Received Lantus 60 units yesterday evening. Denies any chest pain, shortness of breath, abdominal pain, nausea, vomiting at this time. States he feels much better. Hemodynamically stable, adequate urine output, afebrile Review of Systems Review of Systems: All systems reviewed & are unremarkable except as noted in HPI and below (HPI) Exam Narrative: General: Pt is alert awake and in NAD Lungs/Chest: Trachea central Clear BS B/L, No crackles or wheezing. Cardiac: RRR. Normal S1 S2. No murmurs Circulation: Pedal pulses are intact and symmetrical. Abdomen: Normal bowel sounds. Obese. Soft. NT. ND. Extremities: No clubbing, cyanosis or edema. Warm : Mace in place Neurologic: Follows commands. Moves all 4 extremities PERRL Skin: No Rash Objective Data Vital Signs Vital Signs: Vital Signs - 24 hr 09/23/24 10:00 09/23/24 10:00 09/23/24 12:00 Temperature 98.1 F Pulse Rate 107 H 99 102 H Respiratory Rate 19 Blood Pressure 151/75 H Pulse Oximetry 97 Oxygen Delivery 09/23/24 12:00 09/23/24 14:00 09/23/24 14:00 Temperature 98.0 F Pulse Rate 100 109 H 103 H Respiratory Rate 20 18 Blood Pressure 143/87 H 143/87 H Pulse Oximetry 100 96 Oxygen Delivery 09/23/24 16:00 09/23/24 16:00 09/23/24 18:00 Temperature 98.1 F 98.1 F Pulse Rate 103 H 108 H 16 L Respiratory Rate 18 16 Blood Pressure 145/93 H 141/80 H Pulse Oximetry 97 98 Oxygen Delivery 09/23/24 18:00 09/23/24 20:00 09/23/24 20:00 Temperature 98.2 F Pulse Rate 99 99 99 Respiratory Rate 16 Blood Pressure 130/78 Pulse Oximetry 98 Oxygen Delivery 09/23/24 20:00 09/23/24 22:00 09/23/24 22:00 Temperature Pulse Rate 93 93 Respiratory Rate 16 16 Blood Pressure Pulse Oximetry 98 97 Oxygen Delivery Room Air 09/24/24 00:00 09/24/24 00:00 09/24/24 00:08 Temperature 98.1 F Pulse Rate 81 92 Respiratory Rate 18 18 Blood Pressure 142/84 H Pulse Oximetry 97 97 Oxygen Delivery Room Air 09/24/24 02:00 09/24/24 02:15 09/24/24 04:00 Temperature 98.1 F Pulse Rate 88 97 87 Respiratory Rate 15 Blood Pressure 152/89 H Pulse Oximetry 98 Oxygen Delivery 09/24/24 04:30 09/24/24 04:30 09/24/24 06:00 Temperature 98.0 F Pulse Rate 89 90 Respiratory Rate 14 14 Blood Pressure 134/79 Pulse Oximetry 98 98 Oxygen Delivery Room Air 09/24/24 06:25 09/24/24 08:00 09/24/24 08:00 Temperature 97.9 F Pulse Rate 93 89 89 Respiratory Rate 16 17 Blood Pressure 141/74 H 148/98 H Pulse Oximetry 96 98 Oxygen Delivery Intake/Output Intake/Output: Intake & Output 09/21/24 09/22/24 09/23/24 09/24/24 23:59 23:59 23:59 23:59 Intake Total 3467.0 4074.3 1910.0 Output Total 1900 300 Balance 3467.0 2174.3 1610.0 Meds/Results Medications: Active Medications Generic Name Dose Route Start Last Admin Trade Name Jsohuaq PRN Reason Stop Dose Admin Acetaminophen 650 mg 09/22/24 18:08 Acetaminophen 325 Mg Tablet PO Q6H PRN Mild Pain (1-3) or Fever Dextrose 12.5 gm 09/24/24 07:50 Dextrose 50% 25 Gm/50 Ml Syringe IV PUSH PRN PRN Hypoglycemia Protocol Glucagon 1 mg 09/24/24 07:50 Glucagon For Inj 1 Mg Vial IM PRN PRN Hypoglycemia Protocol Glucose 15 gm 09/24/24 07:50 Glucose Oral Gel 15 Gm Of Glucse In 37.5 Gm Tube PO PRN PRN Hypoglycemia Protocol Insulin Human Regular 100 100 mls @ 1 mls/hr 09/22/24 17:00 09/24/24 09:06 units/ Sodium Chloride IV CONT 1 units/hr .Q24H ANDREWS 1 mls/hr Titration Protocol 1 UNITS/HR Potassium Chloride/Sodium Chloride 1,000 mls @ 100 mls/hr 09/23/24 09:25 09/24/24 05:16 Kcl 20 Meq/Ns IV CONT 100 mls/hr .Q10H ANDREWS Administration Dextrose 1,000 mls @ 100 mls/hr 09/24/24 07:50 Dextrose 5% 1,000 Ml IVPB PRN PRN Hypoglycemia Protocol Insulin Aspart 2 - 4 units 09/24/24 21:00 Insulin Aspart (*Bkc) 100 Units/Ml SUB-Q HS [facility] Protocol Insulin Aspart 4 - 8 units 09/24/24 08:00 09/24/24 08:27 Insulin Aspart (*Bkc) 100 Units/Ml SUB-Q Not Given TIDWM [facility] Protocol Insulin Glargine 50 units 09/24/24 09:00 09/24/24 08:26 Insulin Glargine (*Bkc) 100 Units/Ml SUB-Q 50 units DAILY [facility] Administration Ondansetron HCl 4 mg 09/22/24 18:08 Ondansetron Inj 4 Mg/2 Ml Vial IV PUSH Q6H PRN Nausea And Vomiting Radiology Results: ITS Impressions Head CT 09/22/24 16:03 IMPRESSION: 1. Normal brain. Chest X-Ray 09/22/24 17:17 IMPRESSION: 1. No acute cardiopulmonary disease. Labs Labs: Laboratory Results - last 24 hr 09/23/24 09/23/24 09/23/24 10:09 11:14 12:03 WBC RBC Hgb Hct MCV MCH MCHC RDW Plt Count MPV Sodium Potassium Chloride Carbon Dioxide Anion Gap BUN Creatinine Estim Creat Clear Calc Estimated GFR Glucose POC Capillary Glucose 322 H 260 H 234 H Calcium Magnesium Total Bilirubin AST ALT Alkaline Phosphatase Total Protein Albumin 09/23/24 09/23/24 09/23/24 13:03 13:12 14:01 WBC RBC Hgb Hct MCV MCH MCHC RDW Plt Count MPV Sodium 133 L Potassium 4.6 Chloride 104 Carbon Dioxide 19 L Anion Gap 10 BUN 9 Creatinine 0.84 Estim Creat Clear Calc 134 Estimated GFR > 60 Glucose 275 H POC Capillary Glucose 297 H 273 H Calcium 8.7 Magnesium Total Bilirubin AST ALT Alkaline Phosphatase Total Protein Albumin 09/23/24 09/23/24 09/23/24 15:05 16:16 17:22 WBC RBC Hgb Hct MCV MCH MCHC RDW Plt Count MPV Sodium Potassium Chloride Carbon Dioxide Anion Gap BUN Creatinine Estim Creat Clear Calc Estimated GFR Glucose POC Capillary Glucose 255 H 192 H 237 H Calcium Magnesium Total Bilirubin AST ALT Alkaline Phosphatase Total Protein Albumin 09/23/24 09/23/24 09/23/24 18:08 18:57 20:02 WBC RBC Hgb Hct MCV MCH MCHC RDW Plt Count MPV Sodium Potassium Chloride Carbon Dioxide Anion Gap BUN Creatinine Estim Creat Clear Calc Estimated GFR Glucose POC Capillary Glucose 252 H 249 H 244 H Calcium Magnesium Total Bilirubin AST ALT Alkaline Phosphatase Total Protein Albumin 09/23/24 09/23/24 09/23/24 21:02 22:02 23:03 WBC RBC Hgb Hct MCV MCH MCHC RDW Plt Count MPV Sodium Potassium Chloride Carbon Dioxide Anion Gap BUN Creatinine Estim Creat Clear Calc Estimated GFR Glucose POC Capillary Glucose 197 H 201 H 198 H Calcium Magnesium Total Bilirubin AST ALT Alkaline Phosphatase Total Protein Albumin 09/24/24 09/24/24 09/24/24 00:09 01:11 02:12 WBC RBC Hgb Hct MCV MCH MCHC RDW Plt Count MPV Sodium Potassium Chloride Carbon Dioxide Anion Gap BUN Creatinine Estim Creat Clear Calc Estimated GFR Glucose POC Capillary Glucose 198 H 198 H 190 H Calcium Magnesium Total Bilirubin AST ALT Alkaline Phosphatase Total Protein Albumin 09/24/24 09/24/24 09/24/24 03:13 04:31 04:39 WBC 6.3 RBC 4.85 Hgb 13.7 L Hct 42.4 MCV 87.4 MCH 28.2 MCHC 32.3 RDW 12.6 Plt Count 197 MPV 12.9 H Sodium 136 L Potassium 3.9 Chloride 106 Carbon Dioxide 23 Anion Gap 7 BUN 6 L Creatinine 0.68 L Estim Creat Clear Calc 163 Estimated GFR > 60 Glucose 173 H POC Capillary Glucose 176 H 191 H Calcium 8.9 Magnesium 1.8 Total Bilirubin 0.9 AST 26 ALT 29 Alkaline Phosphatase 65 Total Protein 7.0 Albumin 3.6 09/24/24 09/24/24 09/24/24 05:18 06:22 07:11 WBC RBC Hgb Hct MCV MCH MCHC RDW Plt Count MPV Sodium Potassium Chloride Carbon Dioxide Anion Gap BUN Creatinine Estim Creat Clear Calc Estimated GFR Glucose POC Capillary Glucose 196 H 164 H 194 H Calcium Magnesium Total Bilirubin AST ALT Alkaline Phosphatase Total Protein Albumin 09/24/24 09/24/24 08:01 09:04 WBC RBC Hgb Hct MCV MCH MCHC RDW Plt Count MPV Sodium Potassium Chloride Carbon Dioxide Anion Gap BUN Creatinine Estim Creat Clear Calc Estimated GFR Glucose POC Capillary Glucose 161 H 186 H Calcium Magnesium Total Bilirubin AST ALT Alkaline Phosphatase Total Protein Albumin Quality VTE Prophylaxis VTE prophylaxis: mechanical ordered
[2024-09-24 10:00] LABS: Glucose Point of Care 243 mg/dl (65-105)
[2024-09-24] MEDS: INSULIN ASPART (*BKC) 100 UNITS/ML SUB-Q ×3 (11:54→21:48)
[2024-09-24 12:04] LABS: Glucose Point of Care 217 mg/dl (65-105)
--- NOTE | 2024-09-24 13:41 | PC.NURSE ---
Patient to transfer to [facility]. Report called to Diane. Patient meeting with staff educator at this time.
--- NOTE | 2024-09-24 13:50 | PC.NURSE ---
This patient, Elizabeth Cunningham, was received from ICU-5 on 09/24/24 at 1350. Patient/family oriented to unit policies and routines
--- NOTE | 2024-09-24 13:50 | PC.NURSE ---
This patient, Elizabeth Cunningham, was transferred to [facility] on 09/24/24 at 1351. Personal belongings sent with patient. Report given to Diane. Appropriate documentation sent with patient.
[2024-09-24 17:45] LABS: Glucose Point of Care 237 mg/dl (65-105)
[2024-09-24 21:38] LABS: Glucose Point of Care 305 mg/dl (65-105)
[2024-09-25 06:00] VITALS: BP 152/79; PULSE 85; RESP 18; TEMP 36.6; O2SAT 100
[2024-09-25 06:30] LABS: Hematocrit 42.4 % (42.0-52.0); Hemoglobin 13.2 g/dL (14.0-18.0); Mean Corpuscular HGB Conc 31.1 g/dl (32-36); Mean Corpuscular Hemoglobin 27.8 pg (26-34); Mean Corpuscular Volume 89.3 fl (80-100); Platelet Count Result 144 k/mm3 (150-375); Red Blood Count 4.75 M/mm3 (4.6-6.20); Red Cell Distribution Width 12.4 % (11.5-14.5); White Blood Count 5.8 K/mm3 (4.5-10.0)
[2024-09-25 06:42] LABS: Alanine Aminotransferase 33 U/L (6-50); Albumin Level 3.6 g/dL (3.5-5.1); Alkaline Phosphatase 60 U/L (38-126); Anion Gap 12 mmol/L (4-12); Aspartate Amino Transferase 31 U/L (17-59); Bilirubin,Total 0.8 mg/dL (0.2-1.3); Blood Urea Nitrogen 6 mg/dL (9-20); Calcium 9.2 mg/dL (8.4-10.2); Carbon Dioxide 17 mmol/L (22-30); Chloride 106 mmol/L (98-107); Estimated CRCL calculation 172 ml/min; Estimated Glomerular Filt Rate > 60; Glucose 260 mg/dL (65-110); Magnesium 1.9 mg/dL (1.6-2.3); Potassium 4.5 mmol/L (3.4-5.0); Sodium 135 mmol/L (137-145)
--- NOTE | 2024-09-25 07:53 | P.PNIM_ITS ---
Progress Note: A&P Assessment and Plan (1) DKA (diabetic ketoacidosis): Code(s): E11.10 - Type 2 diabetes mellitus with ketoacidosis without coma Status: Acute Assessment and Plan: DKA in a patient with new onset diabetes. Pt was given IVF bolus and started on IVF infusion Insulin infusion was started and Q1H glucose monitoring is being done Serial labs ordered Most recent labs reviewed and his anion gap is closed. Although patient is still is requiring significant amount of insulin on the infusion. He is also clinically improved and is mostly asymptomatic at this time Start diabetic diet 09/24: Anion gap remains closed for the last 24 hours, CO2 has normalized, blood sugars are much improved, on insulin infusion at 1 unit/hour. Will transition to long-acting insulin Lantus and sliding scale insulin. therapist occupational and dietitian has been consulted. 09/25: New onset of diabetes Hemoglobin A1c 11.7 Started Lantus 25 units a.m. and hs. Will continue high-dose sliding scale. Patient received total of 11 (5 +6) units bolus insulin until the late afternoon. Advised to follow strict diabetic diet. TSH normal Order JAYE, free and total insulin, insulin antibodies and C-peptide Order lipid panel DC Lantus 50 units Sliding scale Hypoglycemic protocol Subjective Date/time seen: 09/25/24 07:53 Interval history: Interval history: Patient was admitted in the setting of DKA which is resolved. Patient currently receives Lantus 50 units. Currently on sliding scale and hypoglycemic protocol. 09/25: Started Lantus 25 units a.m. and hs. Will continue high-dose sliding scale. Patient received total of 11 (5 +6) units bolus insulin until the late afternoon. Advised to follow strict diabetic diet. Review of Systems Review of Systems: 12 systems were reviewed and are negativ e except for as per HPI. All systems reviewed & are unremarkable except as noted in HPI and below (HPI) Exam Narrative: General: Pt is alert awake and in NAD Lungs/Chest: Trachea central Clear BS B/L, No crackles or wheezing. Cardiac: RRR. Normal S1 S2. No murmurs Circulation: Pedal pulses are intact and symmetrical. Abdomen: Normal bowel sounds. Obese. Soft. NT. ND. Extremities: No clubbing, cyanosis or edema. Warm : Mace in place Neurologic: Follows commands. Moves all 4 extremities PERRL Skin: No Rash Objective Data Vital Signs Vital Signs: Vital Signs - 24 hr 09/24/24 08:00 09/24/24 08:00 09/24/24 10:00 Temperature 97.9 F Pulse Rate 89 89 95 Respiratory Rate 17 18 Blood Pressure 148/98 H 142/92 H Pulse Oximetry 98 99 Oxygen Delivery 09/24/24 12:00 09/24/24 14:00 09/24/24 14:00 Temperature 98.5 F 97.9 F Pulse Rate 91 110 H Respiratory Rate 18 20 Blood Pressure 147/79 H 120/90 Pulse Oximetry 99 100 Oxygen Delivery Room Air 09/24/24 22:00 09/25/24 06:00 Temperature 97.9 F 97.8 F Pulse Rate 99 85 Respiratory Rate 18 18 Blood Pressure 138/93 H 152/79 H Pulse Oximetry 100 100 Oxygen Delivery Intake/Output Intake/Output: Intake & Output 09/22/24 09/23/24 09/24/24 09/25/24 23:59 23:59 23:59 23:59 Intake Total 3467.0 4074.3 3350.0 200 Output Total 1900 300 Balance 3467.0 2174.3 3050.0 200 Meds/Results Medications: Active Medications Generic Name Dose Route Start Last Admin Trade Name Freq PRN Reason Stop Dose Admin Acetaminophen 650 mg 09/22/24 18:08 Acetaminophen 325 Mg Tablet PO Q6H PRN Mild Pain (1-3) or Fever Dextrose 12.5 gm 09/24/24 07:50 Dextrose 50% 25 Gm/50 Ml Syringe IV PUSH PRN PRN Hypoglycemia Protocol Glucagon 1 mg 09/24/24 07:50 Glucagon For Inj 1 Mg Vial IM PRN PRN Hypoglycemia Protocol Glucose 15 gm 09/24/24 07:50 Glucose Oral Gel 15 Gm Of Glucse In 37.5 Gm Tube PO PRN PRN Hypoglycemia Protocol Dextrose 1,000 mls @ 100 mls/hr 09/24/24 07:50 Dextrose 5% 1,000 Ml IVPB PRN PRN Hypoglycemia Protocol Insulin Aspart 2 - 4 units 09/24/24 21:00 09/24/24 21:48 Insulin Aspart (*Bkc) 100 Units/Ml SUB-Q 3 units HS ANDREWS Administration Protocol Insulin Aspart 4 - 8 units 09/24/24 08:00 09/24/24 18:04 Insulin Aspart (*Bkc) 100 Units/Ml SUB-Q 4 units TIDWM ANDREWS Administration Protocol Insulin Glargine 50 units 09/24/24 09:00 09/24/24 08:26 Insulin Glargine (*Bkc) 100 Units/Ml SUB-Q 50 units DAILY ANDREWS Administration Ondansetron HCl 4 mg 09/22/24 18:08 Ondansetron Inj 4 Mg/2 Ml Vial IV PUSH Q6H PRN Nausea And Vomiting Radiology Results: ITS Impressions Head CT 09/22/24 16:03 IMPRESSION: 1. Normal brain. Chest X-Ray 09/22/24 17:17 IMPRESSION: 1. No acute cardiopulmonary disease. Labs Labs: Laboratory Results - last 24 hr 09/24/24 09/24/24 09/24/24 08:01 09:04 09:57 WBC RBC Hgb Hct MCV MCH MCHC RDW Plt Count MPV Sodium Potassium Chloride Carbon Dioxide Anion Gap BUN Creatinine Estim Creat Clear Calc Estimated GFR Glucose POC Capillary Glucose 161 H 186 H 243 H Calcium Magnesium Total Bilirubin AST ALT Alkaline Phosphatase Total Protein Albumin 09/24/24 09/24/24 09/24/24 11:51 17:43 20:42 WBC RBC Hgb Hct MCV MCH MCHC RDW Plt Count MPV Sodium Potassium Chloride Carbon Dioxide Anion Gap BUN Creatinine Estim Creat Clear Calc Estimated GFR Glucose POC Capillary Glucose 217 H 237 H 305 H Calcium Magnesium Total Bilirubin AST ALT Alkaline Phosphatase Total Protein Albumin 09/25/24 06:05 WBC 5.8 RBC 4.75 Hgb 13.2 L Hct 42.4 MCV 89.3 MCH 27.8 MCHC 31.1 L RDW 12.4 Plt Count 144 L MPV 13.0 H Sodium 135 L Potassium 4.5 Chloride 106 Carbon Dioxide 17 L Anion Gap 12 BUN 6 L Creatinine 0.64 L Estim Creat Clear Calc 172 Estimated GFR > 60 Glucose 260 H POC Capillary Glucose Calcium 9.2 Magnesium 1.9 Total Bilirubin 0.8 AST 31 ALT 33 Alkaline Phosphatase 60 Total Protein 7.0 Albumin 3.6 Quality VTE Prophylaxis VTE prophylaxis: mechanical ordered Hospitalist MIPS Advance Care Plan I have confirmed that the patient's Advanced Care Plan is present, code status is documented, or surrogate decision maker is listed in patient medical record.: Yes Medication Reconciliation I have utilized all available resources to obtain, update and review the patients current medications (includes all prescriptions, OTC, herbals, cannabis, and nutritional supplements).: Yes
[2024-09-25 08:00] LABS: Glucose Point of Care 297 mg/dl (65-105)
[2024-09-25 08:27] LABS: Cholesterol 244 mg/dL (0-200); HDL Direct 35 mg/dL; Triglycerides 219 mg/dL (<150)
[2024-09-25 08:38] LABS: LDL Cholesterol Direct 145 mg/dL
[2024-09-25] MEDS: INSULIN GLARGINE (*BKC) 100 UNITS/ML 50 UNITS SUB-Q (08:39)
[2024-09-25] MEDS: INSULIN ASPART (*BKC) 100 UNITS/ML SUB-Q ×3 (08:40→21:13)
[2024-09-25 11:32] LABS: Glucose Point of Care 331 mg/dl (65-105)
[2024-09-25 14:00] VITALS: BP 147/77; PULSE 100; RESP 18; TEMP 36.3; O2SAT 100
[2024-09-25 16:52] LABS: Glucose Point of Care 349 mg/dl (65-105)
[2024-09-25] MEDS: SODIUM CHLORIDE 0.9% IV 1,000 ML 100 ML IV CONT (17:20)
[2024-09-25] MEDS: INSULIN ASPART (*BKC) 100 UNITS/ML 10 UNITS SUB-Q (17:20)
[2024-09-25 17:28] LABS: Anion Gap 8 mmol/L (4-12); Blood Urea Nitrogen 7 mg/dL (9-20); Calcium 9.5 mg/dL (8.4-10.2); Carbon Dioxide 24 mmol/L (22-30); Chloride 103 mmol/L (98-107); Estimated CRCL calculation 160 ml/min; Estimated Glomerular Filt Rate > 60; Glucose 302 mg/dL (65-110); Potassium 4.3 mmol/L (3.4-5.0); Sodium 135 mmol/L (137-145)
[2024-09-25] MEDS: INSULIN GLARGINE (*BKC) 100 UNITS/ML 25 UNITS SUB-Q (21:14)
[2024-09-25 21:38] LABS: Glucose Point of Care 273 mg/dl (65-105)
[2024-09-25 22:00] VITALS: BP 142/74; PULSE 102; RESP 18; TEMP 36.8; O2SAT 100
[2024-09-26 06:00] VITALS: BP 144/86; PULSE 87; RESP 18; TEMP 36.6; O2SAT 100
[2024-09-26 06:46] LABS: Hematocrit 43.1 % (42.0-52.0); Hemoglobin 13.6 g/dL (14.0-18.0); Mean Corpuscular HGB Conc 31.6 g/dl (32-36); Mean Corpuscular Volume 88.9 fl (80-100); Mean Platelet Volume 12.8 fl (7.4-10.4); Platelet Count Result 223 k/mm3 (150-375); Red Blood Count 4.85 M/mm3 (4.6-6.20); Red Cell Distribution Width 12.5 % (11.5-14.5); White Blood Count 5.7 K/mm3 (4.5-10.0)
[2024-09-26 07:00] LABS: Alanine Aminotransferase 38 U/L (6-50); Albumin Level 3.8 g/dL (3.5-5.1); Alkaline Phosphatase 57 U/L (38-126); Anion Gap 8 mmol/L (4-12); Aspartate Amino Transferase 33 U/L (17-59); Bilirubin,Total 0.8 mg/dL (0.2-1.3); Blood Urea Nitrogen 6 mg/dL (9-20); Calcium 9.1 mg/dL (8.4-10.2); Carbon Dioxide 24 mmol/L (22-30); Chloride 106 mmol/L (98-107); Estimated CRCL calculation 163 ml/min; Estimated Glomerular Filt Rate > 60; Glucose 133 mg/dL (65-110); Magnesium 1.5 mg/dL (1.6-2.3); Potassium 3.9 mmol/L (3.4-5.0); Sodium 138 mmol/L (137-145)
[2024-09-26 07:54] LABS: Glucose Point of Care 170 mg/dl (65-105)
[2024-09-26] MEDS: INSULIN GLARGINE (*BKC) 100 UNITS/ML 25 UNITS SUB-Q ×2 (08:59→21:12)
--- NOTE | 2024-09-26 09:13 | PM.IMPN ---
Progress Note: A&P Assessment and Plan (1) DKA (diabetic ketoacidosis): Code(s): E11.10 - Type 2 diabetes mellitus with ketoacidosis without coma Status: Acute Assessment and Plan: DKA in a patient with new onset diabetes. Pt was given IVF bolus and started on IVF infusion Insulin infusion was started and Q1H glucose monitoring is being done Serial labs ordered Most recent labs reviewed and his anion gap is closed. Although patient is still is requiring significant amount of insulin on the infusion. He is also clinically improved and is mostly asymptomatic at this time Start diabetic diet 09/24: Anion gap remains closed for the last 24 hours, CO2 has normalized, blood sugars are much improved, on insulin infusion at 1 unit/hour. Will transition to long-acting insulin Lantus and sliding scale insulin. environmental educator and dietitian has been consulted. 09/25: New onset of diabetes Hemoglobin A1c 11.7 Started Lantus 25 units a.m. and hs. Will continue high-dose sliding scale. Patient received total of 11 (5 +6) units bolus insulin until the late afternoon. Advised to follow strict diabetic diet. TSH normal Order JAYE, free and total insulin, insulin antibodies and C-peptide Order lipid panel DC Lantus 50 units Sliding scale Hypoglycemic protocol Subjective Date/time seen: 09/26/24 09:13 Interval history: Patient totally got 96 units of insulin. 75 units of Lantus and 21 units of NovoLog. Today his blood glucose in the morning 133 and the fingerstick 170. Today the patient will receive 25 units of Lantus in the morning and 25 units of Lantus in the evening. Will calculate the sliding scale insulin. Review of Systems Review of Systems: 12 systems were reviewed and are negative except for as per HPI. All systems reviewed & are unremarkable except as noted in HPI and below (HPI) Exam Narrative: General: Pt is alert awake and in NAD Lungs/Chest: Trachea central Clear BS B/L, No crackles or wheezing. Cardiac: RRR. Normal S1 S2. No murmurs Circulation: Pedal pulses are intact and symmetrical. Abdomen: Normal bowel sounds. Obese. Soft. NT. ND. Extremities: No clubbing, cyanosis or edema. Warm : Mace in place Neurologic: Follows commands. Moves all 4 extremities PERRL Skin: No Rash Objective Data Vital Signs Vital Signs: Vital Signs - 24 hr 09/25/24 14:00 09/25/24 22:00 09/26/24 06:00 Temperature 97.4 F L 98.2 F 98 F Pulse Rate 100 102 H 87 Respiratory Rate 18 18 18 Blood Pressure 147/77 H 142/74 H 144/86 H Pulse Oximetry 100 100 100 Oxygen Delivery 09/26/24 08:00 Temperature Pulse Rate Respiratory Rate Blood Pressure Pulse Oximetry Oxygen Delivery Room Air Intake/Output Intake/Output: Intake & Output 09/23/24 09/24/24 09/25/24 09/26/24 23:59 23:59 23:59 23:59 Intake Total 4074.3 3350.0 2274 200 Output Total 1900 300 Balance 2174.3 3050.0 2274 200 Meds/Results Medications: Active Medications Generic Name Dose Route Start Last Admin Trade Name Freq PRN Reason Stop Dose Admin Acetaminophen 650 mg 09/22/24 18:08 Acetaminophen 325 Mg Tablet PO Q6H PRN Mild Pain (1-3) or Fever Atorvastatin Calcium 20 mg 09/27/24 09:00 Atorvastatin 20 Mg Tablet PO DAILY ANDREWS Dextrose 12.5 gm 09/24/24 07:50 Dextrose 50% 25 Gm/50 Ml Syringe IV PUSH PRN PRN Hypoglycemia Protocol Glucagon 1 mg 09/24/24 07:50 Glucagon For Inj 1 Mg Vial IM PRN PRN Hypoglycemia Protocol Glucose 15 gm 09/24/24 07:50 Glucose Oral Gel 15 Gm Of Glucse In 37.5 Gm Tube PO PRN PRN Hypoglycemia Protocol Dextrose 1,000 mls @ 100 mls/hr 09/24/24 07:50 Dextrose 5% 1,000 Ml IVPB PRN PRN Hypoglycemia Protocol Sodium Chloride 1,000 mls @ 100 mls/hr 09/25/24 17:00 09/25/24 17:20 Normal Saline Iv IV CONT 100 mls/hr .Q10H ANDREWS Administration Magnesium Sulfate 2 gm in 50 mls @ 25 mls/hr 09/26/24 09:12 Magnesium Sulf 2 Gm/Water 50ml IVPB 09/26/24 11:11 ONCE ONE Insulin Aspart 2 - 4 units 09/24/24 21:00 09/25/24 21:13 Insulin Aspart (*Bkc) 100 Units/Ml SUB-Q 3 units HS ANDREWS Administration Protocol Insulin Aspart 4 - 8 units 09/24/24 08:00 09/26/24 07:59 Insulin Aspart (*Bkc) 100 Units/Ml SUB-Q Not Given TIDWM [facility] Protocol Insulin Glargine 25 units 09/26/24 09:00 09/26/24 08:59 Insulin Glargine (*Bkc) 100 Units/Ml SUB-Q 25 units DAILY ANDREWS Administration Insulin Glargine 25 units 09/25/24 21:00 09/25/24 21:14 Insulin Glargine (*Bkc) 100 Units/Ml SUB-Q 25 units HS ANDREWS Administration Ondansetron HCl 4 mg 09/22/24 18:08 Ondansetron Inj 4 Mg/2 Ml Vial IV PUSH Q6H PRN Nausea And Vomiting Radiology Results: ITS Impressions Head CT 09/22/24 16:03 IMPRESSION: 1. Normal brain. Chest X-Ray 09/22/24 17:17 IMPRESSION: 1. No acute cardiopulmonary disease. Labs Labs: Laboratory Results - last 24 hr 09/25/24 09/25/24 09/25/24 11:23 16:45 17:06 WBC RBC Hgb Hct MCV MCH MCHC RDW Plt Count MPV Sodium 135 L Potassium 4.3 Chloride 103 Carbon Dioxide 24 Anion Gap 8 BUN 7 L Creatinine 0.69 L Estim Creat Clear Calc 160 Estimated GFR > 60 Glucose 302 H POC Capillary Glucose 331 H 349 H Calcium 9.5 Magnesium Total Bilirubin AST ALT Alkaline Phosphatase Total Protein Albumin 09/25/24 09/26/24 09/26/24 20:24 06:17 07:47 WBC 5.7 RBC 4.85 Hgb 13.6 L Hct 43.1 MCV 88.9 MCH 28.0 MCHC 31.6 L RDW 12.5 Plt Count 223 D MPV 12.8 H Sodium 138 Potassium 3.9 Chloride 106 Carbon Dioxide 24 Anion Gap 8 BUN 6 L Creatinine 0.68 L Estim Creat Clear Calc 163 Estimated GFR > 60 Glucose 133 H POC Capillary Glucose 273 H 170 H Calcium 9.1 Magnesium 1.5 L Total Bilirubin 0.8 AST 33 ALT 38 Alkaline Phosphatase 57 Total Protein 7.0 Albumin 3.8 Quality VTE Prophylaxis VTE prophylaxis: mechanical ordered Hospitalist MIPS Advance Care Plan I have confirmed that the patient's Advanced Care Plan is present, code status is documented, or surrogate decision maker is listed in patient medical record.: Yes Medication Reconciliation I have utilized all available resources to obtain, update and review the patients current medications (includes all prescriptions, OTC, herbals, cannabis, and nutritional supplements).: Yes
[2024-09-26] MEDS: MAGNESIUM SULF 2 GM/WATER 50ML 2 GM/50 ML BAG IVPB (11:24)
[2024-09-26] MEDS: ATORVASTATIN 20 MG TABLET PO (11:24)
[2024-09-26 12:05] LABS: Glucose Point of Care 174 mg/dl (65-105)
[2024-09-26 12:08] LABS: C-Peptide 1.26 ng/mL (0.80-3.85)
[2024-09-26 14:00] VITALS: BP 150/84; PULSE 93; RESP 16; TEMP 36.7; O2SAT 100
[2024-09-26 17:18] LABS: Glucose Point of Care 272 mg/dl (65-105)
[2024-09-26] MEDS: INSULIN ASPART (*BKC) 100 UNITS/ML SUB-Q ×2 (17:30→21:13)
[2024-09-26 20:47] LABS: Glucose Point of Care 310 mg/dl (65-105)
[2024-09-26 21:06] VITALS: BP 154/96; PULSE 90; RESP 16; TEMP 36.7; O2SAT 100
[2024-09-27 05:37] VITALS: BP 142/86; PULSE 91; RESP 18; TEMP 36.4; O2SAT 100
[2024-09-27 06:45] LABS: Hematocrit 42.4 % (42.0-52.0); Hemoglobin 13.3 g/dL (14.0-18.0); Mean Corpuscular HGB Conc 31.4 g/dl (32-36); Mean Corpuscular Hemoglobin 27.9 pg (26-34); Mean Corpuscular Volume 89.1 fl (80-100); Mean Platelet Volume 12.6 fl (7.4-10.4); Platelet Count Result 233 k/mm3 (150-375); Red Blood Count 4.76 M/mm3 (4.6-6.20); Red Cell Distribution Width 12.5 % (11.5-14.5); White Blood Count 7.2 K/mm3 (4.5-10.0)
[2024-09-27 06:56] LABS: Alanine Aminotransferase 45 U/L (6-50); Albumin Level 3.7 g/dL (3.5-5.1); Alkaline Phosphatase 55 U/L (38-126); Anion Gap 9 mmol/L (4-12); Aspartate Amino Transferase 39 U/L (17-59); Bilirubin,Total 0.7 mg/dL (0.2-1.3); Blood Urea Nitrogen 6 mg/dL (9-20); Calcium 9.3 mg/dL (8.4-10.2); Carbon Dioxide 24 mmol/L (22-30); Chloride 104 mmol/L (98-107); Estimated CRCL calculation 168 ml/min; Estimated Glomerular Filt Rate > 60; Glucose 167 mg/dL (65-110); Magnesium 1.7 mg/dL (1.6-2.3); Potassium 4.2 mmol/L (3.4-5.0); Sodium 137 mmol/L (137-145)
[2024-09-27 07:49] LABS: Glucose Point of Care 184 mg/dl (65-105)
--- NOTE | 2024-09-27 08:03 | PM.IMPN ---
Progress Note: A&P Assessment and Plan (1) DKA (diabetic ketoacidosis): Code(s): E11.10 - Type 2 diabetes mellitus with ketoacidosis without coma Status: Acute Assessment and Plan: DKA in a patient with new onset diabetes. Pt was given IVF bolus and started on IVF infusion Insulin infusion was started and Q1H glucose monitoring is being done Serial labs ordered Most recent labs reviewed and his anion gap is closed. Although patient is still is requiring significant amount of insulin on the infusion. He is also clinically improved and is mostly asymptomatic at this time Start diabetic diet 09/24: Anion gap remains closed for the last 24 hours, CO2 has normalized, blood sugars are much improved, on insulin infusion at 1 unit/hour. Will transition to long-acting insulin Lantus and sliding scale insulin. natural resources extension educator and dietitian has been consulted. New onset of diabetes Hemoglobin A1c 11.7 Patient evening glucose a has been increased in between 270-310. Morning Lantus has been increased from 25 units to 35 units and will continue the nighttime Lantus 25 units. Will continue high-dose sliding scale. On 09/25 : 75 U Lantus plus Patient received total of 11 (5 +6) units bolus insulin until the late afternoon. Advised to follow strict diabetic diet. TSH normal Order JAYE, free and total insulin, insulin antibodies and C-peptide Review lipid panel DC Lantus 50 units Sliding scale Hypoglycemic protocol Subjective Date/time seen: 09/27/24 08:03 Interval history: Patient evening glucose a has been increased in between 270-310. Morning Lantus has been increased from 25 units to 35 units and will continue the nighttime Lantus 25 units. Advised to seek your appointment with PCP or winder fixer before discharge. Will discuss with care coordination Review of Systems Review of Systems: 12 systems were reviewed and are negative except for as per HPI. All systems reviewed & are unremarkable except as noted in HPI and below (HPI) Exam Narrative: General: Pt is alert awake and in NAD Lungs/Chest: Trachea central Clear BS B/L, No crackles or wheezing. Cardiac: RRR. Normal S1 S2. No murmurs Circulation: Pedal pulses are intact and symmetrical. Abdomen: Normal bowel sounds. Obese. Soft. NT. ND. Extremities: No clubbing, cyanosis or edema. Warm : Mace in place Neurologic: Follows commands. Moves all 4 extremities PERRL Skin: No Rash Objective Data Vital Signs Vital Signs: Vital Signs - 24 hr 09/26/24 14:00 09/26/24 20:00 09/26/24 21:06 Temperature 98.1 F 98.0 F Pulse Rate 93 90 Respiratory Rate 16 16 Blood Pressure 150/84 H 154/96 H Pulse Oximetry 100 100 Oxygen Delivery Room Air 09/27/24 05:37 Temperature 97.5 F L Pulse Rate 91 Respiratory Rate 18 Blood Pressure 142/86 H Pulse Oximetry 100 Oxygen Delivery Intake/Output Intake/Output: Intake & Output 09/24/24 09/25/24 09/26/24 09/27/24 23:59 23:59 23:59 23:59 Intake Total 3350.0 2274 917 550 Output Total 300 Balance 3050.0 2274 917 550 Meds/Results Medications: Active Medications Generic Name Dose Route Start Last Admin Trade Name Freq PRN Reason Stop Dose Admin Acetaminophen 650 mg 09/22/24 18:08 Acetaminophen 325 Mg Tablet PO Q6H PRN Mild Pain (1-3) or Fever Atorvastatin Calcium 20 mg 09/26/24 09:20 09/26/24 11:24 Atorvastatin 20 Mg Tablet PO 20 mg DAILY ANDREWS Administration Dextrose 12.5 gm 09/24/24 07:50 Dextrose 50% 25 Gm/50 Ml Syringe IV PUSH PRN PRN Hypoglycemia Protocol Glucagon 1 mg 09/24/24 07:50 Glucagon For Inj 1 Mg Vial IM PRN PRN Hypoglycemia Protocol Glucose 15 gm 09/24/24 07:50 Glucose Oral Gel 15 Gm Of Glucse In 37.5 Gm Tube PO PRN PRN Hypoglycemia Protocol Dextrose 1,000 mls @ 100 mls/hr 09/24/24 07:50 Dextrose 5% 1,000 Ml IVPB PRN PRN Hypoglycemia Protocol Insulin Aspart 2 - 4 units 09/24/24 21:00 09/26/24 21:13 Insulin Aspart (*Bkc) 100 Units/Ml SUB-Q 3 units HS ANDREWS Administration Protocol Insulin Aspart 4 - 8 units 09/24/24 08:00 09/27/24 07:52 Insulin Aspart (*Bkc) 100 Units/Ml SUB-Q Not Given TIDWM [facility] Protocol Insulin Glargine 25 units 09/25/24 21:00 09/26/24 21:12 Insulin Glargine (*Bkc) 100 Units/Ml SUB-Q 25 units HS ANDREWS Administration Ondansetron HCl 4 mg 09/22/24 18:08 Ondansetron Inj 4 Mg/2 Ml Vial IV PUSH Q6H PRN Nausea And Vomiting Radiology Results: ITS Impressions Head CT 09/22/24 16:03 IMPRESSION: 1. Normal brain. Chest X-Ray 09/22/24 17:17 IMPRESSION: 1. No acute cardiopulmonary disease. Labs Labs: Laboratory Results - last 24 hr 09/25/24 09/26/24 09/26/24 08:28 11:55 16:46 WBC RBC Hgb Hct MCV MCH MCHC RDW Plt Count MPV Sodium Potassium Chloride Carbon Dioxide Anion Gap BUN Creatinine Estim Creat Clear Calc Estimated GFR Glucose POC Capillary Glucose 174 H 272 H C-Peptide 1.26 Calcium Magnesium Total Bilirubin AST ALT Alkaline Phosphatase Total Protein Albumin 09/26/24 09/27/24 09/27/24 19:56 06:08 07:46 WBC 7.2 RBC 4.76 Hgb 13.3 L Hct 42.4 MCV 89.1 MCH 27.9 MCHC 31.4 L RDW 12.5 Plt Count 233 MPV 12.6 H Sodium 137 Potassium 4.2 Chloride 104 Carbon Dioxide 24 Anion Gap 9 BUN 6 L Creatinine 0.67 L Estim Creat Clear Calc 168 Estimated GFR > 60 Glucose 167 H POC Capillary Glucose 310 H 184 H C-Peptide Calcium 9.3 Magnesium 1.7 Total Bilirubin 0.7 AST 39 ALT 45 Alkaline Phosphatase 55 Total Protein 7.0 Albumin 3.7 Hospitalist MIPS Advance Care Plan I have confirmed that the patient's Advanced Care Plan is present, code status is documented, or surrogate decision maker is listed in patient medical record.: Yes Medication Reconciliation I have utilized all available resources to obtain, update and review the patients current medications (includes all prescriptions, OTC, herbals, cannabis, and nutritional supplements).: Yes
[2024-09-27] MEDS: ATORVASTATIN 20 MG TABLET PO (09:17)
[2024-09-27] MEDS: INSULIN GLARGINE (*BKC) 100 UNITS/ML 35 UNITS SUB-Q (09:17)
[2024-09-27 11:33] LABS: Glucose Point of Care 213 mg/dl (65-105)
[2024-09-27] MEDS: INSULIN ASPART (*BKC) 100 UNITS/ML SUB-Q ×2 (12:50→17:47)
[2024-09-27 14:00] VITALS: BP 152/88; PULSE 84; RESP 18; TEMP 36.7; O2SAT 100
[2024-09-27 16:58] LABS: Glucose Point of Care 206 mg/dl (65-105)
[2024-09-27 21:07] LABS: Glucose Point of Care 178 mg/dl (65-105)
[2024-09-27 21:26] VITALS: BP 137/87; PULSE 88; RESP 16; TEMP 36.7; O2SAT 100
[2024-09-27] MEDS: INSULIN GLARGINE (*BKC) 100 UNITS/ML 25 UNITS SUB-Q (21:37)
[2024-09-28 05:39] VITALS: BP 136/87; PULSE 83; RESP 16; TEMP 36.8; O2SAT 100
[2024-09-28 06:18] LABS: Hematocrit 41.4 % (42.0-52.0); Mean Corpuscular HGB Conc 31.4 g/dl (32-36); Mean Corpuscular Hemoglobin 27.5 pg (26-34); Mean Corpuscular Volume 87.5 fl (80-100); Mean Platelet Volume 12.1 fl (7.4-10.4); Platelet Count Result 272 k/mm3 (150-375); Red Blood Count 4.73 M/mm3 (4.6-6.20); Red Cell Distribution Width 12.4 % (11.5-14.5); White Blood Count 7.9 K/mm3 (4.5-10.0)
[2024-09-28 06:34] LABS: Alanine Aminotransferase 46 U/L (6-50); Albumin Level 3.8 g/dL (3.5-5.1); Alkaline Phosphatase 55 U/L (38-126); Anion Gap 9 mmol/L (4-12); Aspartate Amino Transferase 41 U/L (17-59); Bilirubin,Total 0.6 mg/dL (0.2-1.3); Blood Urea Nitrogen 9 mg/dL (9-20); Calcium 9.5 mg/dL (8.4-10.2); Carbon Dioxide 25 mmol/L (22-30); Chloride 105 mmol/L (98-107); Estimated CRCL calculation 161 ml/min; Estimated Glomerular Filt Rate > 60; Glucose 129 mg/dL (65-110); Magnesium 1.5 mg/dL (1.6-2.3); Potassium 3.9 mmol/L (3.4-5.0); Sodium 139 mmol/L (137-145)
[2024-09-28 07:51] LABS: Glucose Point of Care 139 mg/dl (65-105)
[2024-09-28] MEDS: INSULIN GLARGINE (*BKC) 100 UNITS/ML 35 UNITS SUB-Q (09:24)
[2024-09-28] MEDS: ATORVASTATIN 20 MG TABLET PO (09:24)
[2024-09-28] MEDS: MAGNESIUM SULF 2 GM/WATER 50ML 2 GM/50 ML BAG IVPB (10:17)
--- NOTE | 2024-09-28 13:04 | PM.DS ---
DS: Admitting Diagnosis Discharge Date 09/28/24 Admitting Diagnosis DKA DS: Discharge Diagnosis Discharge Diagnosis (1) DKA (diabetic ketoacidosis): Code(s): E11.10 - Type 2 diabetes mellitus with ketoacidosis without coma Status: Acute Assessment and Plan: DKA in a patient with new onset diabetes. Pt was given IVF bolus and started on IVF infusion Insulin infusion was started and Q1H glucose monitoring is being done Serial labs ordered Most recent labs reviewed and his anion gap is closed. Although patient is still is requiring significant amount of insulin on the infusion. He is also clinically improved and is mostly asymptomatic at this time Start diabetic diet 09/24: Anion gap remains closed for the last 24 hours, CO2 has normalized, blood sugars are much improved, on insulin infusion at 1 unit/hour. Will transition to long-acting insulin Lantus and sliding scale insulin. special educator and dietitian has been consulted. New onset of diabetes Hemoglobin A1c 11.7 Patient evening glucose a has been increased in between 270-310. Morning Lantus has been increased from 25 units to 35 units and will continue the nighttime Lantus 25 units. Will continue high-dose sliding scale. On 09/25 : 75 U Lantus plus Patient received total of 11 (5 +6) units bolus insulin until the late afternoon. Discharged with 35 units Lantus in the morning and 25 units of Lantus in the evening Discharged with moderate sliding scale NovoLog Patient has an appointment with the primary care physician next week Advised to follow strict diabetic diet. TSH normal Order JAYE, free and total insulin, insulin antibodies and C-peptide Review lipid panel DC Lantus 50 units Sliding scale Hypoglycemic protocol DS: Summary Hospital Course Hospital Course: Elizabeth Cunningham is a 33 year old male with no significant past medical history presented to ER yesterday with chief complaint of blurred vision polyuria polydipsia feeling of weakness nausea from last 3 days. Patient denies any chest pain shortness a breath fever dysuria hematuria hematochezia melena. He states that from last 3 days he has been having blurred vision going to bathroom very frequently and feeling excessive thirst. He also had some abdominal pain which was mild diffuse P all other systems were reviewed and were negative Workup in the ER showed elevated blood glucose level. Afebrile elevated blood pressure tachycardia. His anion gap was elevated and beta hydroxybutyrate was positive. Patient was diagnosed with DKA with new onset diabetes. He was given IV fluid bolus and started on IV fluids and also started on insulin infusion admitted to ICU for further evaluation management. I assumed care after patient was discharged from IMU. Patient was requiring high dose of insulin after the discharge from IMU. Patient received totally 96 units (75 units of Lantus and 21 units of NovoLog) today after getting discharged from ICU. Patient was discharged with 50 units of Lantus in the morning from ICU. His blood sugar during the daytime were 300's both in morning and evening with Lantus 50 units in the morning. I adjusted his Lantus dose and splinted his Lantus AM and PM to regulate his blood glucose. Patient today discharged with 35 units of Lantus in the morning and 25 units of Lantus in the evening with moderate sliding scale. Advised the importance of checking the blood sugar and compliant with the medications. Patient also to follow up with Endocrinology and PCP within a week upon discharge. Advised to contact me if any questions(given my phone number) before visiting PCP. If the blood pressure is consistently low in 120's advised to decrease his Lantus by 10 U both in morning and evening until he see his PCP. Advised to follow strict diabetic diet.TSH is normal. Pending JAYE, free and total insulin, insulin antibodies and C-peptide Status at Discharge Cognitive/behavioral status at discharge: Stable Time Spent with Patient Time attestation: Total time spent providing and/or coordinating discharge services: 45 minutes Exam Narrative: General: Pt is alert awake and in NAD Lungs/Chest: Trachea central Clear BS B/L, No crackles or wheezing. Cardiac: RRR. Normal S1 S2. No murmurs Circulation: Pedal pulses are intact and symmetrical. Abdomen: Normal bowel sounds. Obese. Soft. NT. ND. Extremities: No clubbing, cyanosis or edema. Warm : Mace in place Neurologic: Follows commands. Moves all 4 extremities PERRL Skin: No Rash DS: Data Data Completed and Pending Labs on day of discharge: Labs from last 24 hours 09/28/24 09/28/24 09/27/24 07:48 05:51 20:05 WBC 7.9 RBC 4.73 Hgb 13.0 L Hct 41.4 L MCV 87.5 MCH 27.5 MCHC 31.4 L RDW 12.4 Plt Count 272 MPV 12.1 H Sodium 139 Potassium 3.9 Chloride 105 Carbon Dioxide 25 Anion Gap 9 BUN 9 Creatinine 0.70 Estim Creat Clear Calc 161 Estimated GFR > 60 Glucose 129 H POC Capillary Glucose 139 H 178 H Calcium 9.5 Magnesium 1.5 L Total Bilirubin 0.6 AST 41 ALT 46 Alkaline Phosphatase 55 Total Protein 7.0 Albumin 3.8 09/27/24 16:53 WBC RBC Hgb Hct MCV MCH MCHC RDW Plt Count MPV Sodium Potassium Chloride Carbon Dioxide Anion Gap BUN Creatinine Estim Creat Clear Calc Estimated GFR Glucose POC Capillary Glucose 206 H Calcium Magnesium Total Bilirubin AST ALT Alkaline Phosphatase Total Protein Albumin Discharge Plan Discharge Attending physician on discharge: Manuel Ruiz Consulting providers: Gaston Mclean; Ham Troncoso Discharging Clinician: Manuel Ruiz Patient Disposition: Home, Self-Care Activity: as tolerated Diet: diabetic Discharge Instructions: Patient has an appointment next week with the PCP In between if any questions as to contact me-given my personal cell phone number Please continue Lantus 35 units in the morning and the with 25 units in the night Please continue NovoLog moderate does dose sliding scale Spent considerable amount of time explaining the insulin needs and complains and in diabetes Patient Instructions: Antibiotic Form, Diabetic Ketoacidosis (GEN), Foot Care for People with Diabetes (GEN), Type 1 Diabetes in Adults: New Diagnosis (GEN), Hypoglycemia in a Person with Diabetes (GEN), Meal Planning with Diabetes Exchanges (GEN), Managing Diabetes During Sick Days (GEN), Diabetes and Your Skin (GEN), Hemoglobin A1c (GEN), Hypertension and Diabetes (GEN), Diabetes and Nutrition (GEN), Diabetes and Exercise (GEN) Patient Language: Serbian Stand Alone Forms: General Discharge Information, Work/School Release IP Follow-up/Referrals: PHYSICIAN,FREIGHT UNLOADER [Primary Care Provider] - Discharge Medications: New atorvastatin 20 mg Tablet 20 mg PO DAILY Qty: 30 0RF insulin glargine [Lantus Solostar U-100 Insulin] 100 unit/mL (3 mL) insulin pen 35 unit subcut QAM Qty: 15 10RF Rx Instructions: Patient needs 35 U Lantus in the morning and 25 U Lantus in the night insulin glargine [Lantus Solostar U-100 Insulin] 100 unit/mL (3 mL) insulin pen 25 unit subcut QPM Qty: 15 10RF Rx Instructions: Patient needs 35 U Lantus in the morning and 25 U Lantus in the night insulin aspart U-100 [Novolog FlexPen U-100 Insulin] 100 unit/mL (3 mL) insulin pen 1 sliding scale dose subcut USEASDIRECTD Qty: 15 10RF Rx Instructions: <70-Follow Hypoglycemic Protocol 70-200-No addition Insulin 201-250 : 3 U 251-300 : 4 U 301-350 : 5 U 351-400 : 6 U > 400 : Call MD (DME) pen needle, diabetic [BD Tameka 2nd Gen Pen Needle] 32 gauge x 5/32 needle See Rx Instructions .Route Qty: 100 0RF Rx Instructions: As directed (DME) blood-glucose meter [OneTouch Verio Flex Start] Kit See Rx Instructions .Route Qty: 1 0RF Rx Instructions: As directed (DME) OneTouch Verio test strips Strip See Rx Instructions .Route Qty: 100 0RF Rx Instructions: As directed (DME) lancets [OneTouch Delica Plus Lancet] 30 gauge misc See Rx Instructions .Route Qty: 100 0RF Rx Instructions: As directed Date of admission: 09/25/24 16:07 Primary Care Provider: PHYSICIAN,FREIGHT UNLOADER Admitting Provider: Kevin Foley Attending physician on admission: Kevin Foley Condition: Stable
--- NOTE | 2024-10-01 15:23 | PCCDE ---
10/01/24 ~ 3:10 pm Per person who answered the phone. He is back to work. N/A. ROD.
== END 2024-09-28 12:15 | disposition home or self-care (01) | DRG 639 ==
LOC: ANHED 17:39 → ANHICU 19:32 → ANH3MEDSUR 09-24 13:52
PROVIDERS: Internal Medicine; Physician Assistant; Admitting Provider Internal Medicine; Emergency Provider Student in an Organized Health Care Education/Training Program; Visit Provider General Practice
DX: E11.10 Type 2 diabetes mellitus with ketoacidosis without coma (principal); E11.65 Type 2 diabetes mellitus with hyperglycemia; E86.0 Dehydration; R03.0 Elevated blood-pressure reading, without diagnosis of hypertension
CPT/HCPCS: 36415; 70450; 71045; 80048; 80053; 80061; 81001; 82010; 82803; 82948; 83036; 83735; 84100; 84443; 84681; 85025; 85027; 86337; 87637; 87641; 96361; 96365; 96366; 96368; 99285; A9270; G0378; J1815; J3475; J3480; J7030

== ENCOUNTER 2025-02-10 14:04 | Emergency (ER) | payer OTHER, SELFPAY ==
--- OUTSIDE RECORDS SUMMARY | 2025-02-10 14:06 | XMS_ITS | Clinical Summary ---
Author Organization [facility] Address Formerly [facility] [place] [address] Care Team Providers Care Senior Ui U[employer] Developer Name Role Phone None, Provider MD Primary [...] 2:24 PM CDT Height 177.8 cm (5' 10) 03/01/2023 2:24 PM CDT Body Mass Index 37.31 03/01/2023 2:24 PM CDT Plan of Treatment Health Maintenance Due Date Last Done Comments Annual Physical 1993 Hepatitis C 2008 DTaP, Tdap and Td Vaccines ( 1 - Tdap) 2009 Hepatitis B Vaccines (1 of 3 - 19+ 3-dose series) 2009 Pneumococcal Vaccine: Pediat rics (0 to 5 Years) and At-Risk Patients (6 to 49 Years) (1 of 2 - PCV) 2009 COVID-19 Vaccine ( - 2023-2 5 season) 2024 HPV Vaccines Aged Out No longer [...] patient's age to complete this topic Insurance Care Teams Senior Ui U[employer] Developer Relationship Specialty Start Date End Date None, Provider, PCP - General 04/28/22
--- NOTE | 2025-02-10 14:26 | ED_ITS ---
HPI - General Adult General Chief complaint: Recheck/Abnormal Lab/Rx Stated complaint: wants labs per pcp Time Seen by Provider: 02/10/25 14:05 Source: patient Mode of arrival: ambulatory Limitations: no limitations History of Present Illness HPI narrative: Patient is a 34-year-old male who presents the ED for routine labs. Patient reports he was told to have routine labs performed by his PCP, Dr. Mclean. He states he works Tuesday through to Tuesday and was unable to get to an outpatient lab. Patient has history of diabetes, hypertension, hyperlipidemia, Jolynn. Was admitted to the hospital here in September for DKA. States he is not experiencing any symptoms at this time. Denies polyuria, polydipsia, blurry vision, headaches, chest pain, abdominal pain, fevers. Related Data Home Medications ?Medication ?Instructions ?Recorded ?Confirmed ?Last Taken ?Type insulin glargine-yfgn 100 unit/mL unit subcut 02/10/25 Unknown History (3 mL) subcutaneous pen (Semglee (insulin glargine-yfgn) Pen) losartan 25 mg tablet mg 02/10/25 Unknown History metformin 500 mg tablet,extended mg PO 02/10/25 Unknown History release 24 hr Allergies Allergy/AdvReac Type Severity Reaction Status Date / Time No Known Allergies Allergy Verified 02/10/25 15:41 Review of Systems 2 Review of Systems: All systems reviewed & are unremarkable except as noted in HPI. All systems reviewed & are unremarkable except as noted in HPI and below PMFSH Past Medical History Medical History No significant medical problems Surgical History Surgical History No significant past surgical history Social History Social History Social History: Surrogate medical decision maker: Griselda Og significant other. Code status: Full code. Smoking status: Current every day smoker Tobacco type: cigars Alcohol intake: current Substance use: never Substance use type: does not use Do You Feel Safe in your Home?: Yes Lack of Transportation: No Lack of Food: Never True Current Housing: I Have Housing Concerned About Future Housing: No Difficulty Paying Gas/Electric Bills: No Difficulty Paying for Meds: No Currently Unemployed: No Education: Grade School Difficulty w/ Childcare or Family Care: No Spiritual care concerns: No Exam 2 Narrative: GENERAL: Well appearing, well-nourished, non-toxic, in no acute distress. HEAD: Normocephalic, atraumatic. RESPIRATORY: Airway patent, respirations nonlabored. Clear to auscultation bilaterally, no rales, rhonchi, wheezing. CARDIOVASCULAR: Regular rate and rhythm MUSCULOSKELETAL: Moves all extremities. No gross deformities. SKIN: Warm, dry, normal color. NEURO: A&O X3. Speech clear. Steady gait. No ataxic movements. PSYCHIATRIC: Appropriate mood and affect. Normal interaction. Course Vital Signs Vital signs: Vital Signs Temperature 97.4 F L 02/10/25 15:36 Pulse Rate 84 02/10/25 15:36 Respiratory Rate 16 02/10/25 15:36 Blood Pressure 165/109 H 02/10/25 15:36 Pulse Oximetry 99 02/10/25 15:36 Oxygen Delivery Room Air 02/10/25 15:36 Temperature 97.4 F L 02/10/25 15:36 Pulse Rate 85 02/10/25 16:06 Respiratory Rate 16 02/10/25 16:06 Blood Pressure 149/96 H 02/10/25 16:06 Pulse Oximetry 100 02/10/25 16:06 Oxygen Delivery Room Air 02/10/25 15:36 Medical Decision Making MDM Narrative Medical decision making narrative: Patient presented to ED wanting outpatient labs performed. Currently asymptomatic, no concerns. Vital signs stable upon arrival. Patient in no acute distress. Labs ordered. Laboratory studies fairly unremarkable. Triglycerides and cholesterol were slightly elevated. No evidence of DKA. No electrolyte derangement. Patient will be discharged to follow-up with PCP for continued management. Given return precautions. Medical Records Medical records reviewed: Yes I reviewed the external patient's medical records. Vital Signs Vital Signs: Vital Signs Temperature 97.4 F L 02/10/25 15:36 Pulse Rate 84 02/10/25 15:36 Respiratory Rate 16 02/10/25 15:36 Blood Pressure 165/109 H 02/10/25 15:36 Pulse Oximetry 99 02/10/25 15:36 Oxygen Delivery Room Air 02/10/25 15:36 Temperature 97.4 F L 02/10/25 15:36 Pulse Rate 85 02/10/25 16:06 Respiratory Rate 16 02/10/25 16:06 Blood Pressure 149/96 H 02/10/25 16:06 Pulse Oximetry 100 02/10/25 16:06 Oxygen Delivery Room Air 02/10/25 15:36 Lab Data Lab results reviewed: Yes I reviewed the patient's lab results. 02/10/25 15:03 02/10/25 15:03 Labs: Lab Results 02/10/25 02/10/25 Range/Units 15:03 15:04 WBC 7.2 (4.5-10.0) K/mm3 RBC 5.23 (4.6-6.20) M/mm3 Hgb 14.0 (14.0-18.0) g/dL Hct 44.7 (42.0-52.0) % MCV 85.5 (80-100) fl MCH 26.8 (26-34) pg MCHC 31.3 L (32-36) g/dl RDW 13.5 (11.5-14.5) % Plt Count 282 (150-375) k/mm3 MPV 10.4 (7.4-10.4) fl Immature Gran % (Auto) 0.4 (0-0.5) % Neut % (Auto) 62.6 (45.5-73.1) % Lymph % (Auto) 21.5 (18.3-44.2) % [place] % (Auto) 10.6 H (2.6-8.5) % Eos % (Auto) 3.8 (0-4.4) % Baso % (Auto) 1.1 (0.2-1.2) % Lymph # (Auto) 1.54 (0.9-3.2) K/mm3 [place] # (Auto) 0.8 H (0.1-0.6) K/mm3 Eos # (Auto) 0.3 (0-0.3) K/mm3 Baso # (Auto) 0.1 (0.0-0.1) K/mm3 Abs Immat Gran (auto) 0.03 (0.00-0.031) K/mm3 Absolute Neuts (auto) 4.5 (1.3-6.7) K/mm3 Absolute Nucleated RBC 0.000 (0.0-0.012) K/mm3 Nucleated RBC % 0.0 (0.0-0.2) % Sodium 139 (137-145) mmol/L Potassium 3.9 (3.4-5.0) mmol/L Chloride 106 (98-107) mmol/L Carbon Dioxide 25 (22-30) mmol/L Anion Gap 8 (4-12) mmol/L BUN 9 (9-20) mg/dL Creatinine 0.83 (0.7-1.3) mg/dL Estim Creat Clear Calc Not Reportable Estimated GFR > 60 (59 - ) Glucose 136 H (65-110) mg/dL Hemoglobin A1c 6.4 H (<5.7) % Calcium 9.4 (8.4-10.2) mg/dL Total Bilirubin 0.6 (0.2-1.3) mg/dL AST 56 (17-59) U/L ALT 48 (6-50) U/L Alkaline Phosphatase 52 (38-126) U/L Total Protein 8.2 (6.3-8.2) g/dL Albumin 4.4 (3.5-5.1) g/dL Triglycerides 256 H (<150) mg/dL Cholesterol 215 H (0-200) mg/dL LDL Cholesterol Direct 108 mg/dL HDL Direct 55 mg/dL Vitamin D 25-Hydroxy 13.3 ng/mL TSH 1.020 (0.465-4.680) uIU/mL Free T4 0.89 (0.78-2.19) ng/dL Urine Color Yellow (Yellow) Urine Appearance Clear (Clear) Urine pH 5.5 (5.0-9.0) Ur Specific Hawi 1.022 (1.001-1.035) Urine Protein 2+ H (Negative) mg/dL Urine Glucose (UA) Negative (Negative) mg/dL Urine Ketones Trace H (Negative) mg/dL Ur Blood (Man) Negative (Negative) Urine Nitrate Negative (Negative) Urine Bilirubin Negative (Negative) Urine Urobilinogen 1.0 (<2.0) mg/dL Leukocyte Esterase Rfl Negative (Negative) CARLOS/UL Urine RBC 0-2 (0-2) /hpf Urine WBC 0-5 (0-3) /hpf Ur Squamous Epith Cells None seen (Few) /hpf Urine Bacteria None seen /hpf Urine Casts 0-2 Ur Random Microalbumin 401.1 H (0-16.7) mg/L Urine Creatinine 235.8 mg/dL Microalb/Creat Ratio 170.1 H (0-30) mg/g Discharge Plan Discharge Clinical Impression: Blood tests for routine general physical examination, Elevated cholesterol with high triglycerides Patient Disposition: Home Condition: Stable Instructions: Antibiotic Form, Low Fat Diet (ED), Hyperlipidemia (DC) Additional Instructions: Follow-up with your primary care doctor for further evaluation. Patient Language: Japanese Prescriptions: No Action atorvastatin 20 mg Tablet 20 mg PO DAILY Qty: 30 0RF insulin glargine [Lantus Solostar U-100 Insulin] 100 unit/mL (3 mL) insulin pen 35 unit subcut QAM Qty: 15 10RF Rx Instructions: Patient needs 35 U Lantus in the morning and 25 U Lantus in the night insulin glargine [Lantus Solostar U-100 Insulin] 100 unit/mL (3 mL) insulin pen 25 unit subcut QPM Qty: 15 10RF Rx Instructions: Patient needs 35 U Lantus in the morning and 25 U Lantus in the night insulin aspart U-100 [Novolog FlexPen U-100 Insulin] 100 unit/mL (3 mL) insulin pen 1 sliding scale dose subcut USEASDIRECTD Qty: 15 10RF Rx Instructions: <70-Follow Hypoglycemic Protocol 70-200-No addition Insulin 201-250 : 3 U 251-300 : 4 U 301-350 : 5 U 351-400 : 6 U > 400 : Call MD (DME) pen needle, diabetic [BD Tameka 2nd Gen Pen Needle] 32 gauge x 5/32 needle See Rx Instructions .Route Qty: 100 0RF Rx Instructions: As directed (DME) blood-glucose meter [OneTouch Verio Flex Start] Kit See Rx Instructions .Route Qty: 1 0RF Rx Instructions: As directed (DME) OneTouch Verio test strips Strip See Rx Instructions .Route Qty: 100 0RF Rx Instructions: As directed (DME) lancets [OneTouch Delica Plus Lancet] 30 gauge misc See Rx Instructions .Route Qty: 100 0RF Rx Instructions: As directed losartan 25 mg tablet metformin 500 mg tablet extended release 24 hr PO insulin glargine-yfgn [Semglee(insulin glarg-yfgn)Pen] 100 unit/mL (3 mL) insulin pen SUBCUT Follow-up/Referrals: Gaston Mclean MD [Primary Care Provider] - Time of Disposition: 15:56
[2025-02-10 15:10] LABS: Hematocrit 44.7 % (42.0-52.0); Hemoglobin 14.0 g/dL (14.0-18.0); Immature Granulocyte Percent A 0.4 % (0-0.5); Lymphocytes Absolute Auto 1.54 K/mm3 (0.9-3.2); Mean Corpuscular HGB Conc 31.3 g/dl (32-36); Mean Corpuscular Hemoglobin 26.8 pg (26-34); Mean Corpuscular Volume 85.5 fl (80-100); Nucleated Red Blood Cells Absolute Auto 0.000 K/mm3 (0.0-0.012); Nucleated Red Blood Cells Perc 0.0 % (0.0-0.2); Platelet Count Result 282 k/mm3 (150-375); Red Blood Count 5.23 M/mm3 (4.6-6.20); White Blood Count 7.2 K/mm3 (4.5-10.0)
[2025-02-10 15:15] LABS: Add Urine Microscopic? YES; Appearance Urine Clear (Clear); Glucose Urine UA Negative (Negative); Leukocyte Esterase Ur Negative LEU/UL (Negative); Nitrate Urine Negative (Negative); Non Pathogenic Casts 0-2; Specific Grav Ur 1.022 (1.001-1.035)
[2025-02-10 15:26] LABS: Alanine Aminotransferase 48 U/L (6-50); Albumin Level 4.4 g/dL (3.5-5.1); Alkaline Phosphatase 52 U/L (38-126); Anion Gap 8 mmol/L (4-12); Aspartate Amino Transferase 56 U/L (17-59); Bilirubin,Total 0.6 mg/dL (0.2-1.3); Blood Urea Nitrogen 9 mg/dL (9-20); Calcium 9.4 mg/dL (8.4-10.2); Carbon Dioxide 25 mmol/L (22-30); Chloride 106 mmol/L (98-107); Cholesterol 215 mg/dL (0-200); Estimated Glomerular Filt Rate > 60; Glucose 136 mg/dL (65-110); HDL Direct 55 mg/dL; Potassium 3.9 mmol/L (3.4-5.0); Sodium 139 mmol/L (137-145); Total Protein 8.2 g/dL (6.3-8.2); Triglycerides 256 mg/dL (<150)
[2025-02-10 15:33] LABS: Hemoglobin A1C 6.4 % (<5.7)
[2025-02-10 15:36] VITALS: BP 165/109; PULSE 84; RESP 16; TEMP 36.3; O2SAT 99
[2025-02-10 15:42] LABS: Free T4 Free Thyroxine 0.89 ng/dL (0.78-2.19)
[2025-02-10 15:59] LABS: Thyroid Stimulating Hormone 1.020 uIU/mL (0.465-4.680)
[2025-02-10 16:05] LABS: MALB Creatinine Ratio 170.1 mg/g (0-30)
[2025-02-10 16:06] VITALS: BP 149/96; PULSE 85; RESP 16; O2SAT 100
== END 2025-02-10 16:07 | disposition home or self-care (01) ==
PROVIDERS: Emergency Provider Physician Assistant; PCP Emergency Medicine
DX: Z00.00 Encounter for general adult medical examination without abnormal findings (principal); E78.00 Pure hypercholesterolemia, unspecified; E78.1 Pure hyperglyceridemia; E11.9 Type 2 diabetes mellitus without complications; I10 Essential (primary) hypertension; Z79.4 Long term (current) use of insulin
CPT/HCPCS: 36415; 80053; 80061; 81001; 82043; 82306; 83036; 84439; 84443; 85025; 99283